=== PATIENT | male | born 1955 | race African-American/Black ===

== ENCOUNTER 2016-02-25 18:28 | Emergency (ER) | payer OTHER ==
[~2016-02-25] VITALS: Ht 167.6 cm; Wt 72.6 kg
[~2016-02-25 18:28] MED LIST: AMIODARONE HCL400 M1 ORAL; AMLODIPINE BESY10 MG ORAL; AMLODIPINE BESYL5 MG ORAL; ASPIRIN81 MG ORAL; ATORVASTATIN CA10 MG ORAL; ATORVASTATIN CA20 MG ORAL; CITALOPRAM HBR20 M1 ORAL; HYDROCODON-ACE1 EA15 ORAL; ISOSORBIDE MON120 M1 PO; ISOSORBIDE MONO30 M1 ORAL; LEVETIRACETAM500 MG ORAL; LISINOPRIL10 MG ORAL; LISINOPRIL5 MG ORAL; MAGNESIUM OXID400 M1 ORAL; METOPROLOL SUC100 MG ORAL; METOPROLOL-HCT1 EAC3 ORAL; MIRTAZAPINE45 M1 ORAL; NITROGLYCERIN0.4 MG SL; PLAVIX75 MG ORAL; TERAZOSIN HCL1 MG ORAL; TRAZODONE HCL150 MG ORAL; VENLAFAXINE HC150 MG ORAL; VISTARIL50 MG ORAL
[2016-02-25 18:41] VITALS: BP 183/106
[2016-02-25 19:11] LABS: BASOPHILS % (AUTO) 1.2 % (0.0-2.0); EOSINOPHILS % (AUTO) 0.6 % (0.0-3.0); MEAN CORPUSCULAR HEMOGLOBIN 30.8 PG (27.0-31.0); MEAN CORPUSCULAR HGB CONC 32.2 G/DL (32.0-36.0); MEAN CORPUSCULAR VOLUME 96 FL (80-99); MEAN PLATELET VOLUME 5.3 FL (6.5-10.1); MONOCYTES % (AUTO) 8.1 % (1.0-10.0); NEUTROPHILS % (AUTO) 61.1 % (45.0-75.0); PLATELET COUNT 225 K/UL (150-450); RED BLOOD COUNT 4.41 M/UL (4.70-6.10); RED CELL DISTRIBUTION WIDTH 14.9 % (11.6-14.8)
[2016-02-25 19:26] LABS: TROPONIN I < 0.30 ng/mL (<=0.30)
[2016-02-25 19:31] LABS: ALANINE AMINOTRANSFERASE 40 U/L (3-41); ALBUMIN/GLOBULIN RATIO 1.5 (1.0-2.7); ANION GAP 15 (5-15); ASPARTATE AMINO TRANSFERASE 33 U/L (5-40); CALCIUM 8.7 mg/dL (8.6-10.2); CARBON DIOXIDE 25 mEQ/L (20-30); CHLORIDE 99 mEQ/L (98-107); CREATININE 1.1 mg/dL (0.7-1.2); GLOMERULAR FILTRATION RATE > 60 mL/min (>60); HEMOLYSIS 7; POTASSIUM 3.4 mEQ/L (3.4-4.9); SODIUM 139 mEQ/L (135-145); TOTAL PROTEIN 6.8 g/dL (6.6-8.7)
[2016-02-25 19:46] VITALS: BP 158/98
[2016-02-25 19:58] LABS: CKMB 1.7 ng/mL (< 6.7)
[2016-02-25] MEDS ORDERED: Ketorolac 30mg Inj IV ONE (20:15)
[2016-02-25 20:41] VITALS: BP 163/105
[2016-02-25 22:15] VITALS: BP 150/94
--- NOTE | 2016-02-25 22:20 | Emergency Room Report ---
History of Present Illness General Chief Complaint: Chest Pain Source: Patient, EMS Present Illness HPI This patient is brought in by EMS. He complains of chest pain. He states that he was at rest and suddenly developed chest pain. He states he then developed tingling and numbness in his hands and in his legs. He denies recent illness. He denies cough or congestion. He denies nausea or vomiting. He denies fever or chills. He denies trauma. He has no other complaints. Allergies: Coded Allergies: No Known Allergies (Unverified , 04/09/15) Patient History Past Medical History: see triage record, HTN, CAD, CVA/TIA Social History: Denies: alcohol use, drug use, smoking Reviewed Nursing Documentation: PMH: Agreed, PSxH: Agreed Nursing Documentation-PMH Past Medical History: No History, Except For Hx Cardiac Problems: Yes - high chol Hx Hypertension: Yes Hx Cancer: No Hx Gastrointestinal Problems: No Hx Neurological Problems: Yes - disk surgery Hx Cerebrovascular Accident: Yes Hx Seizures: Yes Review of Systems All Other Systems: negative except mentioned in HPI Physical Exam Vital Signs Date Time Temp Pulse Resp B/P Pulse Ox O2 Delivery O2 Flow Rate FiO2 02/25/16 18:28 98.1 84 16 155/100 97 Room Air Sp02 EP Interpretation: reviewed, normal General Appearance: no apparent distress, alert, GCS 15, non-toxic Head: normocephalic, atraumatic Eyes: bilateral eye PERRL, bilateral eye normal inspection ENT: hearing grossly normal, normal pharynx, no angioedema, normal voice Neck: full range of motion, supple/symm/no masses Respiratory: chest non-tender, lungs clear, normal breath sounds, speaking full sentences Cardiovascular #1: regular rate, rhythm, no edema Gastrointestinal: normal bowel sounds, non tender, soft, non-distended, no guarding, no rebound Rectal: deferred Musculoskeletal: back normal, gait/station normal, normal range of motion, non- tender Neurologic: alert, oriented x3, responsive, motor strength/tone normal, sensory intact, speech normal Psychiatric: judgement/insight normal, memory normal, mood/affect normal, no suicidal/homicidal ideation Skin: normal color, no rash, warm/dry, well hydrated Medical Decision Making Diagnostic Impression: Primary Impression: Chest pain ER Course Patient presents with chest pain. He is moderate risk for acute coronary syndrome given his history of CVA and coronary artery disease. Initial workup here in the emergency department is negative, specifically no acute findings on EKG and a negative troponin. Also negative chest x-ray. Given the patient's moderate risk and age, I felt this patient should be admitted for observation to rule out acute coronary syndrome. The patient insurance company requested his transfer to her [facility]. He is in a stable condition and transferred. Labs Test 02/25/16 19:00 White Blood Count 5.0 K/UL (4.8-10.8) Red Blood Count 4.41 M/UL (4.70-6.10) Hemoglobin 13.6 G/DL (14.2-18.0) Hematocrit 42.1 % (42.0-52.0) Mean Corpuscular Volume 96 FL (80-99) Mean Corpuscular Hemoglobin 30.8 PG (27.0-31.0) Mean Corpuscular Hemoglobin Concent 32.2 G/DL (32.0-36.0) Red Cell Distribution Width 14.9 % (11.6-14.8) Platelet Count 225 K/UL (150-450) Mean Platelet Volume 5.3 FL (6.5-10.1) Neutrophils (%) (Auto) 61.1 % (45.0-75.0) Lymphocytes (%) (Auto) 29.0 % (20.0-45.0) Monocytes (%) (Auto) 8.1 % (1.0-10.0) Eosinophils (%) (Auto) 0.6 % (0.0-3.0) Basophils (%) (Auto) 1.2 % (0.0-2.0) Sodium Level 139 mEQ/L (135-145) Potassium Level 3.4 mEQ/L (3.4-4.9) Chloride Level 99 mEQ/L (98-107) Carbon Dioxide Level 25 mEQ/L (20-30) Anion Gap 15 (5-15) Blood Urea Nitrogen 9 mg/dL (7-23) Creatinine 1.1 mg/dL (0.7-1.2) Estimat Glomerular Filtration Rate > 60 mL/min (>60) Glucose Level 129 mg/dL (74-106) Calcium Level 8.7 mg/dL (8.6-10.2) Total Bilirubin 0.4 mg/dL (0.0-1.2) Aspartate Amino Transf (AST/SGOT) 33 U/L (5-40) Alanine Aminotransferase (ALT/SGPT) 40 U/L (3-41) Alkaline Phosphatase 76 U/L (40-129) Total Creatine Kinase 95 U/L (38-174) Creatine Kinase MB 1.7 ng/mL (< 6.7) Creatine Kinase MB Relative Index 1.7 Troponin I < 0.30 ng/mL (<=0.30) Total Protein 6.8 g/dL (6.6-8.7) Albumin 4.1 g/dL (3.5-5.2) Globulin 2.7 g/dL Albumin/Globulin Ratio 1.5 (1.0-2.7) EKG Diagnostic Results Rate: normal Rhythm: NSR ST Segments: no acute changes Rhythm Strip Diag. Results EP Interpretation: yes Rate: 80's Rhythm: NSR, no PVC's, no ectopy Chest X-Ray Diagnostic Results EP Interpretation: Yes Findings: no consolidation, no effusion, no pneumothorax, no acute cardiopulmonary disease Number of Views: 1 Last Vital Signs Date Time Temp Pulse Resp B/P Pulse Ox O2 Delivery O2 Flow Rate FiO2 02/25/16 20:41 99.2 71 15 163/105 98 Room Air Disposition: XFER [facility] Condition: Stable Referrals: [facility],REFERRING (PCP) RODOLFO GILMAN D.O. Feb 25, 2016 22:20
[2016-02-25 22:55] VITALS: BP 185/117
--- NOTE | 2016-02-26 09:13 | Diagnostic Imaging Report ---
Indications: Chest pain Technique: Portable AP chest Findings: Comparison: 11/30/2015 Cardiac silhouette remains normal in size. Pulmonary vasculature remains within normal limits. Lungs and pleura remain clear. Mild calcification of the aortic arch, elevation of the apparent hemidiaphragm again noted.. IMPRESSION: No evidence of acute disease, unchanged Stable chronic changes as described
--- NOTE | 2016-02-26 17:42 | Cardiology Report ---
APPROVED REPORT EKG Measurement Heart [id number] ID [id number] Normal sinus rhythm Possible Lateral infarct, age undetermined Inferior infarct, age undetermined Prolonged QT Abnormal ECG
== END 2016-02-25 22:55 | disposition short-term general hospital (02) ==
LOC: EDBD 18:28 → EMR 20:41 → EDBEDREQ 20:55 → EMR 22:55
DX: R07.9 Chest pain, unspecified (principal); I10 Essential (primary) hypertension; E78.00 Pure hypercholesterolemia, unspecified; Z86.73 Personal history of transient ischemic attack (TIA), and cerebral infarction without residual deficits; I25.10 Atherosclerotic heart disease of native coronary artery without angina pectoris
CPT/HCPCS: 36415; 71010; 80053; 82550; 82553; 84484; 85025; 87081; 93005; 96374; 96375; 99284; J0360; J1885

== ENCOUNTER 2016-05-22 19:24 | Inpatient (IN) | payer OTHER ==
[~2016-05-22] VITALS: Ht 170.2 cm; Wt 81.6 kg
[2016-05-22 19:49] LABS: BASOPHILS % (AUTO) 0.7 % (0.0-2.0); EOSINOPHILS % (AUTO) 0.3 % (0.0-3.0); LYMPHOCYTES % (AUTO) 51.1 % (20.0-45.0); MEAN CORPUSCULAR HEMOGLOBIN 31.4 PG (27.0-31.0); MEAN CORPUSCULAR VOLUME 92 FL (80-99); MEAN PLATELET VOLUME 6.6 FL (6.5-10.1); MONOCYTES % (AUTO) 7.8 % (1.0-10.0); PLATELET COUNT 153 K/UL (150-450); RED BLOOD COUNT 4.16 M/UL (4.70-6.10); RED CELL DISTRIBUTION WIDTH 14.1 % (11.6-14.8); WHITE BLOOD COUNT 3.9 K/UL (4.8-10.8)
[2016-05-22] MEDS ORDERED: Famotidine 20 MG/ 2ML VIAL IVP ONE (20:00)
[2016-05-22] MEDS ORDERED: Morphine Sulfate 4mg/ml Inj IVP ONE (20:00)
[2016-05-22 20:05] LABS: ALANINE AMINOTRANSFERASE 42 U/L (3-41); ALBUMIN/GLOBULIN RATIO 1.4 (1.0-2.7); ANION GAP 15 (5-15); ASPARTATE AMINO TRANSFERASE 32 U/L (5-40); CALCIUM 8.8 mg/dL (8.6-10.2); CARBON DIOXIDE 25 mEQ/L (20-30); CHLORIDE 102 mEQ/L (98-107); CREATININE 1.1 mg/dL (0.7-1.2); GLOMERULAR FILTRATION RATE > 60 mL/min (>60); HEMOLYSIS 9; POTASSIUM 3.1 mEQ/L (3.4-4.9); SODIUM 142 mEQ/L (135-145); TOTAL PROTEIN 6.4 g/dL (6.6-8.7)
[2016-05-22 20:37] LABS: CKMB < 1.5 ng/mL (< 6.7)
[2016-05-22 20:38] LABS: TROPONIN I < 0.30 ng/mL (<=0.30)
[2016-05-22 21:40] VITALS: BP 162/96
[2016-05-22 22:20] VITALS: BP 183/117
[2016-05-22 22:40] VITALS: BP 152/99
--- NOTE | 2016-05-22 22:49 | Emergency Room Report ---
History of Present Illness General Chief Complaint: Chest Pain Source: Patient, EMS Present Illness HPI 60-year-old male since ED complaining of chest pain. Pain is substernal, 6/10, pressure-like, nonradiating. Given aspirin nitroglycerin with minimal improvement in pain. Has history of hypertension. Denies smoking or drug use. Patient has history of gastritis. Notes some epigastric pain which started after the chest pain. Denies nausea or vomiting. No other aggravating relieving factors. Denies any other associated symptoms Allergies: Coded Allergies: No Known Allergies (Unverified , 04/09/15) Patient History Past Medical History: HTN, seizures Past Surgical History: none Pertinent Family History: none Social History: Denies: alcohol use, drug use, smoking Immunizations: UTD Reviewed Nursing Documentation: PMH: Agreed, PSxH: Agreed Nursing Documentation-PMH Past Medical History: No History, Except For Hx Cardiac Problems: Yes - HIGH CHOLESTEROL, SC IN 2012 Hx Hypertension: Yes Hx Cancer: No Hx Gastrointestinal Problems: No Hx Neurological Problems: Yes - disk surgery Hx Cerebrovascular Accident: Yes Hx Seizures: Yes Review of Systems All Other Systems: negative except mentioned in HPI Physical Exam Vital Signs Date Time Temp Pulse Resp B/P Pulse Ox O2 Delivery O2 Flow Rate FiO2 05/22/16 19:19 83 19 150/96 100 Room Air Sp02 EP Interpretation: reviewed General Appearance: no apparent distress, alert, GCS 15, non-toxic Head: normocephalic Eyes: bilateral eye PERRL, bilateral eye normal inspection ENT: normal ENT inspection Neck: normal inspection Respiratory: chest non-tender, lungs clear, normal breath sounds, speaking full sentences Cardiovascular #1: regular rate, rhythm, no edema Gastrointestinal: normal bowel sounds, non tender, soft, non-distended, no guarding, no rebound Rectal: deferred Genitourinary: no CVA tenderness Musculoskeletal: normal inspection Neurologic: alert, oriented x3, responsive, motor strength/tone normal, sensory intact, speech normal Psychiatric: normal inspection Skin: normal inspection Lymphatic: normal inspection, no adenopathy Medical Decision Making Diagnostic Impression: Primary Impression: ACS (acute coronary syndrome) ER Course Hospital Course 60-year-old male presents ED complaining of chest pain Differential diagnoses include: SC/unstable angina, contusion, muscle strain, PTX, rib fracture Clinical course Patient placed on stretcher. on dentist. After initial history and physical I ordered labs, EKG, chest x-ray, morphine labs reviewed- no leukocytosis, hb/hct stable, electrolytes ok, trop negative EKG - NSR, twave inversions in lateral leads Chest x-ray- unremarkable Case discussed with and he agreed to accept the patient to his service for further care and support I. I feel this is a highly complex case requiring extensive working including EKG/Rhythm strip, Xray/CT/US, Blood/urine lab work, repeat exams while in ED, and administration of strong opiates/narcotics for pain control, admission to hospital or close patient follow up. Diagnosis - ACS admitted to telemetry in serious condition Labs Test 05/22/16 19:40 White Blood Count 3.9 K/UL (4.8-10.8) Red Blood Count 4.16 M/UL (4.70-6.10) Hemoglobin 13.1 G/DL (14.2-18.0) Hematocrit 38.4 % (42.0-52.0) Mean Corpuscular Volume 92 FL (80-99) Mean Corpuscular Hemoglobin 31.4 PG (27.0-31.0) Mean Corpuscular Hemoglobin Concent 34.0 G/DL (32.0-36.0) Red Cell Distribution Width 14.1 % (11.6-14.8) Platelet Count 153 K/UL (150-450) Mean Platelet Volume 6.6 FL (6.5-10.1) Neutrophils (%) (Auto) 40.0 % (45.0-75.0) Lymphocytes (%) (Auto) 51.1 % (20.0-45.0) Monocytes (%) (Auto) 7.8 % (1.0-10.0) Eosinophils (%) (Auto) 0.3 % (0.0-3.0) Basophils (%) (Auto) 0.7 % (0.0-2.0) Sodium Level 142 mEQ/L (135-145) Potassium Level 3.1 mEQ/L (3.4-4.9) Chloride Level 102 mEQ/L (98-107) Carbon Dioxide Level 25 mEQ/L (20-30) Anion Gap 15 (5-15) Blood Urea Nitrogen 8 mg/dL (7-23) Creatinine 1.1 mg/dL (0.7-1.2) Estimat Glomerular Filtration Rate > 60 mL/min (>60) Glucose Level 113 mg/dL (74-106) Calcium Level 8.8 mg/dL (8.6-10.2) Total Bilirubin 0.5 mg/dL (0.0-1.2) Aspartate Amino Transf (AST/SGOT) 32 U/L (5-40) Alanine Aminotransferase (ALT/SGPT) 42 U/L (3-41) Alkaline Phosphatase 63 U/L (40-129) Total Creatine Kinase 95 U/L (38-174) Creatine Kinase MB < 1.5 ng/mL (< 6.7) Creatine Kinase MB Relative Index Troponin I < 0.30 ng/mL (<=0.30) Pro-B-Type Natriuretic Peptide 187 pg/mL (0-125) Total Protein 6.4 g/dL (6.6-8.7) Albumin 3.8 g/dL (3.5-5.2) Globulin 2.6 g/dL Albumin/Globulin Ratio 1.4 (1.0-2.7) EKG Diagnostic Results Rate: normal Rhythm: NSR ST Segments: other - twave inversions in lateral heads ASA given to the pt in ED: No - given by ems Rhythm Strip Diag. Results EP Interpretation: yes Rhythm: NSR, no PVC's, no ectopy Chest X-Ray Diagnostic Results EP Interpretation: Yes Findings: no consolidation, no effusion, no pneumothorax, no acute cardiopulmonary disease Number of Views: 1 Last Vital Signs Date Time Temp Pulse Resp B/P Pulse Ox O2 Delivery O2 Flow Rate FiO2 05/22/16 22:29 169/102 05/22/16 19:19 83 19 100 Room Air Status: improved Disposition: ADMITTED INPATIENT Condition: Serious Referrals: [facility]REFERRED [facility],REFERRING (PCP) GT ALCALA M.D. May 22, 2016 22:49
[2016-05-22 22:55] VITALS: BP 145/87
[2016-05-22] MEDS ORDERED: Miralax 17gm pkt ORAL PRN (23:15)
[2016-05-22] MEDS ORDERED: Nitroglycerin Subl 0.4mg tab (Bottle Of 25) SL PRN (23:15)
[2016-05-22] MEDS ORDERED: DuoNeb 0.5-3(2.5)mg/3ml neb HHN PRN (23:15)
[2016-05-22] MEDS ORDERED: Diltiazem 25mg/5ml IV PRN (23:15)
[2016-05-22] MEDS ORDERED: Enalaprilat 2.5mg/2ml Inj IV PRN (23:15)
[2016-05-23] VITALS: BP 145/86
[2016-05-23] MEDS: Morphine Sulfate 2mg/ml Inj IVP PRN ×6 (00:28→21:21)
[2016-05-23] MEDS ORDERED: DORZOLAMIDE HCL10 M1 BOTH EYES (00:43)
[2016-05-23] MEDS ORDERED: SPIRIVA18 MCG (00:43)
[2016-05-23 04:00] VITALS: BP 117/65
[2016-05-23 08:11] VITALS: BP 143/80
[2016-05-23] MEDS: Metoprolol XL 100mg tab ORAL SCH (08:31)
[2016-05-23] MEDS: Citalopram 20mg Tab ORAL SCH (08:32)
[2016-05-23] MEDS: Aspirin Baby 81mg ORAL SCH (08:32)
[2016-05-23] MEDS: Lisinopril 10mg tab ORAL SCH (08:32)
[2016-05-23] MEDS: Heparin 5000 units/ml inj SUBQ SCH ×2 (08:35→21:19)
[2016-05-23] MEDS ORDERED: Aspirin Baby 81mg ORAL SCH (09:00)
[2016-05-23 09:51] LABS: MEAN CORPUSCULAR HEMOGLOBIN 29.9 PG (27.0-31.0); MEAN CORPUSCULAR VOLUME 94 FL (80-99); MEAN PLATELET VOLUME 6.4 FL (6.5-10.1); PLATELET COUNT 170 K/UL (150-450); RED BLOOD COUNT 4.33 M/UL (4.70-6.10); RED CELL DISTRIBUTION WIDTH 14.8 % (11.6-14.8); WHITE BLOOD COUNT 2.7 K/UL (4.8-10.8)
[2016-05-23 10:04] LABS: INR 1.1 (0.9-1.1); PROTHROMBIN TIME 10.7 SEC (9.30-11.50)
[2016-05-23 10:11] LABS: TROPONIN I < 0.30 ng/mL (<=0.30)
[2016-05-23 10:13] LABS: CHOLESTEROL 133 mg/dL (< 200); CHOLESTEROL/HDL RATIO 2.5 (3.3-4.4); CRP QUANT < 0.3 mg/dL (< 0.5); HEMOLYSIS 3; LDL CHOLESTEROL (CALC.) 60 mg/dL (60-99)
[2016-05-23 10:20] LABS: THYROID STIMULATING HORMONE 0.214 uIU/mL (0.300-4.500)
[2016-05-23 10:30] LABS: BAND NEUTROPHILS % (MANUAL) 0 % (0-8); BASOPHILS % (MANUAL) 0 % (0-2); EOSINOPHILS % (MANUAL) 0 % (0-3); LYMPHOCYTES % (MANUAL) 54 % (20-45); NEUTROPHILS % (MANUAL) 31 % (45-75); PLATELET ESTIMATE ADEQUATE; PLATELET MORPHOLOGY NORMAL; TOTAL CELLS COUNTED 100
--- NOTE | 2016-05-23 10:37 | Diagnostic Imaging Report ---
Indication: Chest pain Technique: One view of the chest Comparison: 02/25/2016 Findings: Lungs and pleural spaces are clear. Heart size is normal. Upper mediastinum is unremarkable. No significant change Impression: No acute process
[2016-05-23 11:18] VITALS: BP 142/78
--- NOTE | 2016-05-23 13:15 | History and Physical ---
History of Present Illness General Date patient seen: May 23, 2016 Reason for Hospitalization: Chest Pain Present Illness HPI 60-year-old male with hx of HTN, CVA presented to [facility] with CC of chest pain, pressure-like, nonradiating. Given aspirin nitroglycerin with minimal improvement in pain. Patient has history of gastritis and some epigastric pain which started after the chest pain. Allergies: Coded Allergies: No Known Allergies (Unverified , 04/09/15) Medication History Scheduled Amlodipine Besylate* (Amlodipine Besylate*), 5 MG ORAL DAILY, (Reported) Aspirin* (Aspirin*), 81 MG ORAL DAILY, (Reported) Atorvastatin Calcium* (Atorvastatin Calcium*), 80 MG ORAL DAILY, (Reported) Atorvastatin Calcium* (Lipitor*), 10 MG ORAL DAILY, (Reported) Citalopram Hydrobromide* (Citalopram Hbr*), 20 MG ORAL DAILY, (Reported) Clopidogrel Bisulfate* (Plavix*), 75 MG ORAL DAILY Dorzolamide Hcl (Dorzolamide Hcl), 1 DROP BOTH EYES THREE TIMES A DAY, (Reported ) Isosorbide Mononitrate (Isosorbide Mononitrate Er), 60 MG ORAL BEDTIME Levetiracetam* (Levetiracetam*), 500 MG ORAL TWICE A DAY, (Reported) Lisinopril* (Lisinopril*), 10 MG ORAL DAILY, (Reported) Magnesium Oxide (Magnesium Oxide), 400 MG ORAL TWICE A DAY, (Reported) Metoprolol Succinate* (Metoprolol Succinate*), 200 MG ORAL DAILY, (Reported) Metoprolol/Hydrochlorothiazide (Metoprolol-Hctz 50-25 Mg Tab), 1 TAB ORAL BID, ( Reported) Mirtazapine (Mirtazapine), 45 MG ORAL BID, (Reported) Terazosin Hcl* (Hytrin*), 2 MG ORAL BEDTIME, (Reported) Trazodone* (Trazodone*), 100 MG ORAL BEDTIME, (Reported) Scheduled PRN Hydrocodone/Acetaminophen 5-325* (Hydrocodone/Acetaminophen 5-325*), 1 TAB ORAL Q6H PRN for For Pain Miscellaneous Medications Nitroglycerin (Nitroglycerin), 0.4 MG SL, (Reported) Tiotropium [place]* (Spiriva*), (Reported) Patient History Healthcare decision maker Resuscitation status Full Code Advanced Directive on File Past Medical/Surgical History Past Medical/Surgical History: (1) Hypertension (2) CVA (cerebral vascular accident) Review of Systems All Other Systems: negative except mentioned in HPI Physical Exam General Appearance: WD/WN, no apparent distress Lines, tubes and drains: peripheral HEENT: normocephalic, atraumatic Neck: non-tender, normal alignment Respiratory/Chest: chest wall non-tender, lungs clear Cardiovascular/Chest: normal peripheral pulses, normal rate Abdomen: normal bowel sounds, non tender Genitourinary/Rectal: normal genital exam, normal rectal exam Extremities: normal range of motion Skin Exam: normal pigmentation 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 Last 24 Hour Vital Signs Date Time Temp Pulse Resp B/P Pulse Ox O2 Delivery O2 Flow Rate FiO2 05/23/16 12:17 82 16 99 Nasal Cannula 2.0 05/23/16 12:11 40 05/23/16 12:10 79 16 97 Nasal Cannula 05/23/16 11:18 98.1 68 20 142/78 99 Room Air 05/23/16 08:32 143/80 05/23/16 08:31 85 143/80 05/23/16 08:31 85 143/80 05/23/16 08:11 97.9 85 20 143/80 98 Room Air 05/23/16 08:03 71 16 Room Air 05/23/16 08:00 80 05/23/16 04:00 Room Air 05/23/16 04:00 97.7 86 20 117/65 97 Bi-pap 05/23/16 04:00 81 05/23/16 00:00 74 05/23/16 00:00 98.2 74 18 145/86 98 Room Air 05/22/16 22:55 98.7 76 19 145/87 100 Room Air 05/22/16 22:55 98.7 76 19 145/87 100 Room Air 05/22/16 22:40 98.7 76 19 152/99 100 Room Air 05/22/16 22:29 169/102 05/22/16 22:20 98.6 77 19 183/117 100 Room Air 05/22/16 21:40 98.6 72 19 162/96 100 Room Air 05/22/16 19:25 79 19 Room Air 05/22/16 19:19 83 19 150/96 100 Room Air Intake and Output 05/22/16 05/23/16 19:00 07:00 Intake Total 240 ml Output Total 300 ml Balance -60 ml Intake Oral 240 ml Output Urine Total 300 ml Laboratory Tests Test 05/22/16 19:40 05/23/16 09:00 White Blood Count 3.9 K/UL (4.8-10.8) L 2.7 K/UL (4.8-10.8) L Red Blood Count 4.16 M/UL (4.70-6.10) L 4.33 M/UL (4.70-6.10) L Hemoglobin 13.1 G/DL (14.2-18.0) L 12.9 G/DL (14.2-18.0) L Hematocrit 38.4 % (42.0-52.0) L 40.5 % (42.0-52.0) L Mean Corpuscular Volume 92 FL (80-99) 94 FL (80-99) Mean Corpuscular Hemoglobin 31.4 PG (27.0-31.0) H 29.9 PG (27.0-31.0) Mean Corpuscular Hemoglobin Concent 34.0 G/DL (32.0-36.0) 32.0 G/DL (32.0-36.0) Red Cell Distribution Width 14.1 % (11.6-14.8) 14.8 % (11.6-14.8) Platelet Count 153 K/UL (150-450) 170 K/UL (150-450) Mean Platelet Volume 6.6 FL (6.5-10.1) 6.4 FL (6.5-10.1) L Neutrophils (%) (Auto) 40.0 % (45.0-75.0) L % (45.0-75.0) Lymphocytes (%) (Auto) 51.1 % (20.0-45.0) H % (20.0-45.0) Monocytes (%) (Auto) 7.8 % (1.0-10.0) % (1.0-10.0) Eosinophils (%) (Auto) 0.3 % (0.0-3.0) % (0.0-3.0) Basophils (%) (Auto) 0.7 % (0.0-2.0) % (0.0-2.0) Sodium Level 142 mEQ/L (135-145) Potassium Level 3.1 mEQ/L (3.4-4.9) L Chloride Level 102 mEQ/L (98-107) Carbon Dioxide Level 25 mEQ/L (20-30) Anion Gap 15 (5-15) Blood Urea Nitrogen 8 mg/dL (7-23) Creatinine 1.1 mg/dL (0.7-1.2) Estimat Glomerular Filtration Rate > 60 mL/min (>60) Glucose Level 113 mg/dL (74-106) H Calcium Level 8.8 mg/dL (8.6-10.2) Total Bilirubin 0.5 mg/dL (0.0-1.2) Aspartate Amino Transf (AST/SGOT) 32 U/L (5-40) Alanine Aminotransferase (ALT/SGPT) 42 U/L (3-41) H Alkaline Phosphatase 63 U/L (40-129) Total Creatine Kinase 95 U/L (38-174) Creatine Kinase MB < 1.5 ng/mL (< 6.7) Creatine Kinase MB Relative Index Troponin I < 0.30 ng/mL (<=0.30) < 0.30 ng/mL (<=0.30) Pro-B-Type Natriuretic Peptide 187 pg/mL (0-125) H Total Protein 6.4 g/dL (6.6-8.7) L Albumin 3.8 g/dL (3.5-5.2) Globulin 2.6 g/dL Albumin/Globulin Ratio 1.4 (1.0-2.7) Differential Total Cells Counted 100 Neutrophils % (Manual) 31 % (45-75) L Lymphocytes % (Manual) 54 % (20-45) H Monocytes % (Manual) 15 % (1-10) H Eosinophils % (Manual) 0 % (0-3) Basophils % (Manual) 0 % (0-2) Band Neutrophils 0 % (0-8) Platelet Estimate Adequate Platelet Morphology Normal Red Blood Cell Morphology Normal Prothrombin Time 10.7 SEC (9.30-11.50) Prothromb Time International Ratio 1.1 (0.9-1.1) Activated Partial Thromboplast Time 29 SEC (23-33) C-Reactive Protein, Quantitative < 0.3 mg/dL (< 0.5) Triglycerides Level 95 mg/dL (< 150) Cholesterol Level 133 mg/dL (< 200) LDL Cholesterol 60 mg/dL (60-99) HDL Cholesterol 54 mg/dL (> 60) Cholesterol/HDL Ratio 2.5 (3.3-4.4) L Thyroid Stimulating Hormone (TSH) 0.214 uIU/mL (0.300-4.500) Height (Feet): 5 Height (Inches): 7.00 Weight (Pounds): 180 Medications Current Medications Medications (Trade) Dose Ordered Sig/Heber Route PRN Reason Start Time Stop Time Status Last Admin Dose Admin Acetaminophen (Tylenol) 650 mg Q4H PRN ORAL FEVER 05/22/16 23:15 06/21/16 23:14 Albuterol/ Ipratropium (DuoNeb 0.5-3(2.5)mg/3ml) 3 ml Q4H PRN HHN Shortness of Breath 05/22/16 23:15 05/27/16 23:14 05/23/16 12:09 Amlodipine Besylate (Norvasc) 5 mg DAILY ORAL 05/23/16 09:00 06/22/16 08:59 05/23/16 08:31 Aspirin (ASA) 162 mg DAILY ORAL 05/23/16 09:00 06/22/16 08:59 05/23/16 08:32 Atorvastatin Calcium (Lipitor) 80 mg BEDTIME ORAL 05/23/16 21:00 06/22/16 20:59 Citalopram Hydrobromide (celeXA) 20 mg DAILY ORAL 05/23/16 09:00 06/22/16 08:59 05/23/16 08:32 Clopidogrel Bisulfate (Plavix) 75 mg DAILY ORAL 05/23/16 09:00 06/22/16 08:59 05/23/16 08:33 Diltiazem HCl (Cardizem) 10 mg EVERY HOUR PRN IV heart rate more than 120, 05/22/16 23:15 06/21/16 23:14 Enalaprilat (Vasotec) 2.5 mg Q6H PRN IV sbp more than 160 05/22/16 23:15 06/21/16 23:14 Heparin Sodium (Porcine) (Heparin 5000 units/ml) 5,000 units EVERY 12 HOURS SUBQ 05/23/16 09:00 06/22/16 08:59 05/23/16 08:35 Isosorbide Mononitrate (Imdur) 60 mg BEDTIME ORAL 05/23/16 21:00 06/22/16 20:59 Ketorolac Tromethamine (Toradol 30mg) 30 mg Q6H PRN IV moderate pain ( 4-6) 05/22/16 23:15 05/27/16 23:14 Levetiracetam (Keppra) 500 mg TWICE A DAY ORAL 05/23/16 09:00 06/22/16 08:59 05/23/16 08:31 Lisinopril (Zestril) 10 mg DAILY ORAL 05/23/16 09:00 06/22/16 08:59 05/23/16 08:32 Metoprolol Succinate (Toprol XL) 200 mg DAILY ORAL 05/23/16 09:00 06/22/16 08:59 05/23/16 08:31 Morphine Sulfate (Morphine Sulfate) 2 mg Q4H PRN IVP severe Pain (Pain Scale 7-10) 05/22/16 23:15 05/29/16 23:14 05/23/16 12:40 Nitroglycerin (Ntg) 0.4 mg Every 5 Minutes PRN SL Prn Chest Pain 05/22/16 23:15 06/21/16 23:14 Ondansetron HCl (Zofran) 4 mg Q6H PRN IVP Nausea & Vomiting 05/22/16 23:15 06/21/16 23:14 Pantoprazole (Protonix) 40 mg DAILY ORAL 05/23/16 09:00 06/22/16 08:59 05/23/16 08:33 Polyethylene Glycol (Miralax) 17 gm DAILYPRN PRN ORAL Constipation 05/22/16 23:15 06/21/16 23:14 Temazepam (Restoril) 15 mg HSPRN PRN ORAL Insomnia 05/22/16 23:15 05/29/16 23:14 05/23/16 00:28 Terazosin HCl (Hytrin) 2 mg BEDTIME ORAL 05/23/16 21:00 06/22/16 20:59 Trazodone HCl (Desyrel) 100 mg BEDTIME ORAL 05/23/16 21:00 06/22/16 20:59 Assessment/Plan Problem List: (1) ACS (acute coronary syndrome) ICD Codes: I24.9 - Acute ischemic heart disease, unspecified SNOMED: 472525588 (2) GERD (gastroesophageal reflux disease) ICD Codes: K21.9 - Gastro-esophageal reflux disease without esophagitis SNOMED: 938864812 (3) Costochondritis ICD Codes: M94.0 - Chondrocostal junction syndrome [Tietze] SNOMED: 98266065 (4) CVA (cerebral vascular accident) ICD Codes: I63.9 - Cerebral infarction, unspecified SNOMED: 475801754 (5) Hypertension ICD Codes: I10 - Essential (primary) hypertension SNOMED: 25721872 Assessment/Plan serial ekg, troponin, echo cardiology evaluation symptomatic treatment. CHARLIE HINTON May 23, 2016 13:15
[2016-05-23 16:00] VITALS: BP 136/90
[2016-05-23 20:00] VITALS: BP 142/85
[2016-05-23] MEDS: Terazosin 1mg cap ORAL SCH (21:18)
[2016-05-23] MEDS: TraZODone 100mg tab ORAL SCH (21:20)
[2016-05-23] MEDS: Atorvastatin 80mg tab ORAL SCH (21:20)
[2016-05-23] MEDS: Imdur 30mg tab ORAL SCH (21:20)
[2016-05-23] MEDS ORDERED: LATANOPROST2.5 ML (23:35)
[2016-05-23] MEDS ORDERED: BRIMONIDINE (23:35)
[2016-05-24] VITALS: BP 116/67
[2016-05-24] MEDS: Morphine Sulfate 2mg/ml Inj IVP PRN ×3 (01:49→10:23)
[2016-05-24 04:30] VITALS: BP 125/80
[2016-05-24 04:35] LABS: MEAN CORPUSCULAR HEMOGLOBIN 29.8 PG (27.0-31.0); MEAN CORPUSCULAR VOLUME 93 FL (80-99); MEAN PLATELET VOLUME 5.8 FL (6.5-10.1); PLATELET COUNT 155 K/UL (150-450); RED BLOOD COUNT 4.09 M/UL (4.70-6.10); RED CELL DISTRIBUTION WIDTH 14.5 % (11.6-14.8); WHITE BLOOD COUNT 2.7 K/UL (4.8-10.8)
[2016-05-24 05:05] LABS: ALANINE AMINOTRANSFERASE 42 U/L (3-41); ALBUMIN/GLOBULIN RATIO 1.5 (1.0-2.7); ANION GAP 10 (5-15); ASPARTATE AMINO TRANSFERASE 33 U/L (5-40); CALCIUM 8.5 mg/dL (8.6-10.2); CARBON DIOXIDE 28 mEQ/L (20-30); CHLORIDE 104 mEQ/L (98-107); CREATININE 1.1 mg/dL (0.7-1.2); GLOMERULAR FILTRATION RATE > 60 mL/min (>60); HEMOLYSIS 4; MAGNESIUM 1.7 mg/dL (1.7-2.5); PHOSPHORUS 2.9 mg/dL (2.5-4.8); SODIUM 142 mEQ/L (135-145); TOTAL PROTEIN 5.6 g/dL (6.6-8.7)
[2016-05-24 05:06] LABS: TROPONIN I < 0.30 ng/mL (<=0.30)
[2016-05-24 07:46] VITALS: BP 109/67
[2016-05-24] MEDS: Dorzolamide 2% Btl LEFT EYE SCH ×3 (09:04→17:51)
[2016-05-24] MEDS: Citalopram 20mg Tab ORAL SCH (09:05)
[2016-05-24] MEDS: Lisinopril 10mg tab ORAL SCH (09:05)
[2016-05-24] MEDS: Aspirin Baby 81mg ORAL SCH (09:05)
[2016-05-24] MEDS: Metoprolol XL 100mg tab ORAL SCH (09:05)
[2016-05-24] MEDS: Heparin 5000 units/ml inj SUBQ SCH ×2 (09:07→20:56)
[2016-05-24 11:26] VITALS: BP 128/80
--- NOTE | 2016-05-24 12:07 | Pulmonology Progress Note ---
Assessment/Plan Problems: (1) ACS (acute coronary syndrome) (2) GERD (gastroesophageal reflux disease) (3) Costochondritis (4) CVA (cerebral vascular accident) (5) Hypertension Assessment/Plan echo noted, troponin negative c/o abdominal pain will get KUB and ask for GI evaluation Subjective ROS Limited/Unobtainable: No Interval Events: comfortable Allergies: Coded Allergies: No Known Allergies (Unverified , 04/09/15) Objective Last 24 Hour Vital Signs Date Time Temp Pulse Resp B/P Pulse Ox O2 Delivery O2 Flow Rate FiO2 05/24/16 11:26 97.6 67 20 128/80 96 Room Air 05/24/16 09:06 69 109/67 05/24/16 09:05 69 109/67 05/24/16 09:05 109/67 05/24/16 08:00 66 05/24/16 07:46 97.7 69 20 109/67 99 Nasal Cannula 2.0 05/24/16 04:30 97.7 70 20 125/80 97 05/24/16 04:00 69 05/24/16 00:00 98.2 66 20 116/67 99 Room Air 05/24/16 00:00 67 05/23/16 21:51 98.0 05/23/16 21:20 142/85 05/23/16 20:00 64 05/23/16 20:00 98.0 71 18 142/85 97 Room Air 05/23/16 19:40 72 16 Room Air 21 05/23/16 16:00 98.2 69 18 136/90 97 Room Air 05/23/16 16:00 66 05/23/16 12:17 82 16 99 Nasal Cannula 2.0 05/23/16 12:11 40 05/23/16 12:10 79 16 97 Nasal Cannula Intake and Output 05/23/16 05/24/16 19:00 07:00 Intake Total 250 ml 400 ml Balance 250 ml 400 ml Intake Oral 250 ml 400 ml # Voids 2 1 General Appearance: WD/WN HEENT: normocephalic Respiratory/Chest: chest wall non-tender, lungs clear Cardiovascular: normal peripheral pulses, normal rate Abdomen: normal bowel sounds, soft, non tender 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 Laboratory Tests 05/23/16 14:30: Urine Opiates Screen PositiveH, Urine Barbiturates Screen Negative, Phencyclidine (PCP) Screen Negative, Urine Amphetamines Screen PositiveH, Urine Benzodiazepines Screen Negative, Urine Cocaine Screen Negative, Urine Marijuana (THC) Screen Negative 05/24/16 04:10: White Blood Count 2.7L, Red Blood Count 4.09L, Hemoglobin 12.2L, Hematocrit 38.1L, Mean Corpuscular Volume 93, Mean Corpuscular Hemoglobin 29.8, Mean Corpuscular Hemoglobin Concent 32.0, Red Cell Distribution Width 14.5, Platelet Count 155, Mean Platelet Volume 5.8L, Neutrophils (%) (Auto) , Lymphocytes (%) ( Auto) , Monocytes (%) (Auto) , Eosinophils (%) (Auto) , Basophils (%) (Auto) , Sodium Level 142, Potassium Level 4.0, Chloride Level 104, Carbon Dioxide Level 28, Anion Gap 10, Blood Urea Nitrogen 14, Creatinine 1.1, Estimat Glomerular Filtration Rate > 60, Glucose Level 94, Calcium Level 8.5L, Phosphorus Level 2.9 , Magnesium Level 1.7, Total Bilirubin 0.3, Aspartate Amino Transf (AST/SGOT) 33 , Alanine Aminotransferase (ALT/SGPT) 42H, Alkaline Phosphatase 60, Troponin I < 0.30, Total Protein 5.6L, Albumin 3.4L, Globulin 2.2, Albumin/Globulin Ratio 1.5 Current Medications Medications (Trade) Dose Ordered Sig/Heber Route PRN Reason Start Time Stop Time Status Last Admin Dose Admin Acetaminophen (Tylenol) 650 mg Q4H PRN ORAL FEVER 05/22/16 23:15 06/21/16 23:14 Albuterol/ Ipratropium (DuoNeb 0.5-3(2.5)mg/3ml) 3 ml Q4H PRN HHN Shortness of Breath 05/22/16 23:15 05/27/16 23:14 05/23/16 12:09 Amlodipine Besylate (Norvasc) 5 mg DAILY ORAL 05/23/16 09:00 06/22/16 08:59 05/24/16 09:06 Aspirin (ASA) 162 mg DAILY ORAL 05/23/16 09:00 06/22/16 08:59 05/24/16 09:05 Atorvastatin Calcium (Lipitor) 80 mg BEDTIME ORAL 05/23/16 21:00 06/22/16 20:59 05/23/16 21:20 Citalopram Hydrobromide (celeXA) 20 mg DAILY ORAL 05/23/16 09:00 06/22/16 08:59 05/24/16 09:05 Clopidogrel Bisulfate (Plavix) 75 mg DAILY ORAL 05/23/16 09:00 06/22/16 08:59 05/24/16 09:05 Diltiazem HCl (Cardizem) 10 mg EVERY HOUR PRN IV heart rate more than 120, 05/22/16 23:15 06/21/16 23:14 Dorzolamide HCl (Trusopt) 1 drop THREE TIMES A DAY LEFT EYE 05/24/16 09:00 06/23/16 08:59 05/24/16 09:04 Enalaprilat (Vasotec) 2.5 mg Q6H PRN IV sbp more than 160 05/22/16 23:15 06/21/16 23:14 Heparin Sodium (Porcine) (Heparin 5000 units/ml) 5,000 units EVERY 12 HOURS SUBQ 05/23/16 09:00 06/22/16 08:59 05/24/16 09:07 Isosorbide Mononitrate (Imdur) 60 mg BEDTIME ORAL 05/23/16 21:00 06/22/16 20:59 05/23/16 21:20 Ketorolac Tromethamine (Toradol 30mg) 30 mg Q6H PRN IV moderate pain ( 4-6) 05/22/16 23:15 05/27/16 23:14 Latanoprost (Xalatan) 1 drop BEDTIME LEFT EYE 05/24/16 21:00 06/23/16 20:59 Levetiracetam (Keppra) 500 mg TWICE A DAY ORAL 05/23/16 09:00 06/22/16 08:59 05/24/16 09:06 Lisinopril (Zestril) 10 mg DAILY ORAL 05/23/16 09:00 06/22/16 08:59 05/24/16 09:05 Metoprolol Succinate (Toprol XL) 200 mg DAILY ORAL 05/23/16 09:00 06/22/16 08:59 05/24/16 09:05 Morphine Sulfate (Morphine Sulfate) 2 mg Q4H PRN IVP severe Pain (Pain Scale 7-10) 05/22/16 23:15 05/29/16 23:14 05/24/16 10:23 Nitroglycerin (Ntg) 0.4 mg Every 5 Minutes PRN SL Prn Chest Pain 05/22/16 23:15 06/21/16 23:14 Non-Formulary Medication (Non-Formulary Med) 1 ea DAILY ORAL 05/24/16 09:00 06/23/16 08:59 UNV Ondansetron HCl (Zofran) 4 mg Q6H PRN IVP Nausea & Vomiting 05/22/16 23:15 06/21/16 23:14 05/23/16 21:22 Pantoprazole (Protonix) 40 mg DAILY ORAL 05/23/16 09:00 06/22/16 08:59 05/24/16 09:05 Polyethylene Glycol (Miralax) 17 gm DAILYPRN PRN ORAL Constipation 05/22/16 23:15 06/21/16 23:14 Temazepam (Restoril) 15 mg HSPRN PRN ORAL Insomnia 05/22/16 23:15 05/29/16 23:14 05/23/16 21:23 Terazosin HCl (Hytrin) 2 mg BEDTIME ORAL 05/23/16 21:00 06/22/16 20:59 05/23/16 21:18 Trazodone HCl (Desyrel) 100 mg BEDTIME ORAL 05/23/16 21:00 06/22/16 20:59 05/23/16 21:20 CHARLIE HINTON May 24, 2016 12:07
[2016-05-24 13:06] LABS: PROTHROMBIN TIME 10.6 SEC (9.30-11.50)
[2016-05-24 13:12] LABS: ANISOCYTOSIS 1+; BAND NEUTROPHILS % (MANUAL) 0 % (0-8); BASOPHILS % (MANUAL) 0 % (0-2); EOSINOPHILS % (MANUAL) 0 % (0-3); HYPOCHROMASIA 1+; LYMPHOCYTES % (MANUAL) 49 % (20-45); NEUTROPHILS % (MANUAL) 42 % (45-75); PLATELET ESTIMATE ADEQUATE; PLATELET MORPHOLOGY NORMAL; TOTAL CELLS COUNTED 100
[2016-05-24 13:27] LABS: PATH BLOOD SMEAR/OMC SENT TO PATHOLOGIST; RETICULOCYTE COUNT 0.6 % (0.0-2.0)
[2016-05-24 13:57] LABS: ERYTHROCYTE SEDIMENTATION RATE 4 MM/HR (0-20)
[2016-05-24] MEDS: Ketorolac 30mg Inj IV PRN ×2 (14:41→20:45)
[2016-05-24 16:00] VITALS: BP 149/97
[2016-05-24 20:00] VITALS: BP 144/94
--- NOTE | 2016-05-24 20:38 | Cardiology Progress Note ---
Subjective Subjective [id number] Objective Last 24 Hour Vital Signs Date Time Temp Pulse Resp B/P Pulse Ox O2 Delivery O2 Flow Rate FiO2 05/24/16 19:44 70 20 Room Air 21 05/24/16 16:00 63 05/24/16 12:00 65 05/24/16 11:26 97.6 67 20 128/80 96 Room Air 05/24/16 09:06 69 109/67 05/24/16 09:05 69 109/67 05/24/16 09:05 109/67 05/24/16 08:00 66 05/24/16 07:46 97.7 69 20 109/67 99 Nasal Cannula 2.0 05/24/16 04:30 97.7 70 20 125/80 97 05/24/16 04:00 69 05/24/16 00:00 98.2 66 20 116/67 99 Room Air 05/24/16 00:00 67 05/23/16 21:51 98.0 05/23/16 21:20 142/85 Intake and Output 05/23/16 05/24/16 19:00 07:00 Intake Total 250 ml 400 ml Balance 250 ml 400 ml Intake Oral 250 ml 400 ml # Voids 2 1 Laboratory Tests Test 05/24/16 04:10 05/24/16 12:45 White Blood Count 2.7 K/UL (4.8-10.8) L Red Blood Count 4.09 M/UL (4.70-6.10) L Hemoglobin 12.2 G/DL (14.2-18.0) L Hematocrit 38.1 % (42.0-52.0) L Mean Corpuscular Volume 93 FL (80-99) Mean Corpuscular Hemoglobin 29.8 PG (27.0-31.0) Mean Corpuscular Hemoglobin Concent 32.0 G/DL (32.0-36.0) Red Cell Distribution Width 14.5 % (11.6-14.8) Platelet Count 155 K/UL (150-450) Mean Platelet Volume 5.8 FL (6.5-10.1) L Neutrophils (%) (Auto) % (45.0-75.0) Lymphocytes (%) (Auto) % (20.0-45.0) Monocytes (%) (Auto) % (1.0-10.0) Eosinophils (%) (Auto) % (0.0-3.0) Basophils (%) (Auto) % (0.0-2.0) Differential Total Cells Counted 100 Neutrophils % (Manual) 42 % (45-75) L Lymphocytes % (Manual) 49 % (20-45) H Monocytes % (Manual) 9 % (1-10) Eosinophils % (Manual) 0 % (0-3) Basophils % (Manual) 0 % (0-2) Band Neutrophils 0 % (0-8) Platelet Estimate Adequate Platelet Morphology Normal Hypochromasia 1+ Anisocytosis 1+ Sodium Level 142 mEQ/L (135-145) Potassium Level 4.0 mEQ/L (3.4-4.9) Chloride Level 104 mEQ/L (98-107) Carbon Dioxide Level 28 mEQ/L (20-30) Anion Gap 10 (5-15) Blood Urea Nitrogen 14 mg/dL (7-23) Creatinine 1.1 mg/dL (0.7-1.2) Estimat Glomerular Filtration Rate > 60 mL/min (>60) Glucose Level 94 mg/dL (74-106) Calcium Level 8.5 mg/dL (8.6-10.2) L Phosphorus Level 2.9 mg/dL (2.5-4.8) Magnesium Level 1.7 mg/dL (1.7-2.5) Total Bilirubin 0.3 mg/dL (0.0-1.2) Aspartate Amino Transf (AST/SGOT) 33 U/L (5-40) Alanine Aminotransferase (ALT/SGPT) 42 U/L (3-41) H Alkaline Phosphatase 60 U/L (40-129) Troponin I < 0.30 ng/mL (<=0.30) Total Protein 5.6 g/dL (6.6-8.7) L Albumin 3.4 g/dL (3.5-5.2) L Globulin 2.2 g/dL Albumin/Globulin Ratio 1.5 (1.0-2.7) Erythrocyte Sedimentation Rate 4 MM/HR (0-20) Reticulocyte Count 0.6 % (0.0-2.0) Prothrombin Time 10.6 SEC (9.30-11.50) Prothromb Time International Ratio 1.0 (0.9-1.1) Activated Partial Thromboplast Time 42 SEC (23-33) H Iron Level 66 ug/dL (59-158) Total Iron Binding Capacity 365 ug/dL (250-400) Percent Iron Saturation 18 % (15-50) Unsaturated Iron Binding 299 ug/dL (112-346) Lactate Dehydrogenase 160 U/L (135-225) Carcinoembryonic Antigen 3.5 ng/mL H Vitamin B12 Level 317 pg/mL (211-946) Folate Pending ZOHRA SALAZAR May 24, 2016 20:38
[2016-05-24] MEDS: Atorvastatin 80mg tab ORAL SCH (20:46)
[2016-05-24] MEDS: Imdur 30mg tab ORAL SCH (20:46)
[2016-05-24] MEDS: TraZODone 100mg tab ORAL SCH (20:46)
[2016-05-24] MEDS: Brimonidine 0.2% Opth Sol BOTH EYES SCH (20:48)
[2016-05-24] MEDS: Terazosin 1mg cap ORAL SCH (21:10)
[2016-05-25 00:17] VITALS: BP 135/87
--- NOTE | 2016-05-25 01:58 | Consultation ---
DATE OF CONSULTATION: 05/24/2016 CARDIOLOGY CONSULTATION This consultation is done as a coverage for Dr. Laz Ch. IDENTIFYING DATA: This is a 60-year-old black male. REASON FOR ADMISSION: Chest pain. HISTORY OF PRESENT ILLNESS: The patient is a pleasant 60-year-old gentleman with history of coronary stents in 2012 at [facility]. I asked if he was told he had NH at that time and he said no, he was not told. He is still having chest pain about 4 months ago, which was radiating to the left arm, relieved by sublingual nitroglycerin, but day before yesterday, the pain became much worse. It happened when he got up and he went to shower and he started having tingling and numbness of the left shoulder and left arm and substernal pressure. He took nitroglycerin, the pain relieved, and then in an hour came back. The patient right now does not have chest pain. He did not have chest pain in the hospital. PAST MEDICAL HISTORY: Significant for hypertension and hyperlipidemia. He does not have diabetes. HABITS: He smokes about 2 to 3 cigarettes a day for the last 40 years. He denies alcohol abuse. No cocaine or IV drugs. PAST SURGICAL HISTORY: Remarkable for angioplasty, left eye surgery, and cholecystectomy. ALLERGIES: None. MEDICATIONS: His medications were all reviewed and reconciled. REVIEW OF SYSTEMS: His review of systems was done in details, but he did not have any additional information to his history. PHYSICAL EXAMINATION: GENERAL: This is a pleasant gentleman. VITAL SIGNS: Blood pressure 110/70, heart rate is 70, oxygen saturation is normal, and temperature is normal. HEENT: PERRLA. EOMI. NECK: Supple. Jugular pressure is not elevated. Carotid upstroke is preserved. LUNGS: He has few scattered wheezing bilaterally, but in general unremarkable. HEART: Regular. Positive S4. Diminished S1. ABDOMEN: Soft. Slightly distended. Slightly tender in suprapubic area. EXTREMITIES: Lower extremities, no edema. Distal pulses palpable. Slightly decreased sensitivity on the right leg. NEUROLOGIC: LABORATORY AND DIAGNOSTIC DATA: EKG shows inferior infarct, probably old. Chest x-ray unremarkable. The rest of the labs were all reviewed and they are unremarkable besides mild anemia, decreased white count, and slightly decreased albumin. IMPRESSION AND RECOMMENDATIONS: Chest pain, sounds like angina to me and EKG is abnormal with inferior infarct. This patient needs a cardiac workup. I am going to go ahead and order nuclear scan on him and he might need coronary angiogram. Thank you very much for your consultation. Nilda Palma M.D. DR: DIAMOND JOB#: [id number] CC:
[2016-05-25 04:03] VITALS: BP 129/74
[2016-05-25 04:34] LABS: MEAN CORPUSCULAR HGB CONC 32.4 G/DL (32.0-36.0); MEAN CORPUSCULAR VOLUME 93 FL (80-99); PLATELET COUNT 156 K/UL (150-450); RED BLOOD COUNT 3.94 M/UL (4.70-6.10); RED CELL DISTRIBUTION WIDTH 14.4 % (11.6-14.8); WHITE BLOOD COUNT 2.5 K/UL (4.8-10.8)
[2016-05-25] MEDS: Ketorolac 30mg Inj IV PRN ×3 (05:25→18:32)
[2016-05-25 07:56] VITALS: BP 150/87
--- NOTE | 2016-05-25 09:13 | General Progress Note ---
Assessment/Plan Assessment/Plan Assessment - Bloating / gas - loose stools - non specific abd pain - bordeline CEA - borderline LFT changes - CP / ACS Recommendations - Check C diff - check hepatitis serologies - check abd u/s - cardilogy w/u - outpatient EGD/Colon - outpt SIBO analysis Subjective Allergies: Coded Allergies: No Known Allergies (Unverified , 04/09/15) Objective Last 24 Hour Vital Signs Date Time Temp Pulse Resp B/P Pulse Ox O2 Delivery O2 Flow Rate FiO2 05/25/16 07:56 97.7 68 20 150/87 97 Room Air 05/25/16 04:03 98.8 62 20 129/74 99 Room Air 05/25/16 04:00 60 05/25/16 00:17 98.7 77 21 135/87 98 Room Air 05/25/16 00:00 69 05/24/16 20:46 128/80 05/24/16 20:00 98.2 73 20 144/94 97 Room Air 05/24/16 20:00 62 05/24/16 19:44 70 20 Room Air 21 05/24/16 16:00 97.7 63 20 149/97 96 Room Air 05/24/16 16:00 63 05/24/16 16:00 63 05/24/16 12:00 65 05/24/16 11:26 97.6 67 20 128/80 96 Room Air Intake and Output 05/24/16 05/25/16 19:00 07:00 Intake Total 490 ml 360 ml Balance 490 ml 360 ml Intake Oral 490 ml 360 ml # Voids 3 4 Laboratory Tests 05/24/16 12:45: Erythrocyte Sedimentation Rate 4, Reticulocyte Count 0.6, Prothrombin Time 10.6 , Prothromb Time International Ratio 1.0, Activated Partial Thromboplast Time 42H, Iron Level 66, Total Iron Binding Capacity 365, Percent Iron Saturation 18 , Unsaturated Iron Binding 299, Lactate Dehydrogenase 160, Carcinoembryonic Antigen 3.5H, Vitamin B12 Level 317, Folate [Pending] 05/25/16 03:55: White Blood Count 2.5L, Red Blood Count 3.94L, Hemoglobin 11.8L, Hematocrit 36.5L, Mean Corpuscular Volume 93, Mean Corpuscular Hemoglobin 30.0, Mean Corpuscular Hemoglobin Concent 32.4, Red Cell Distribution Width 14.4, Platelet Count 156, Mean Platelet Volume 7.0, Neutrophils (%) (Auto) , Lymphocytes (%) ( Auto) , Monocytes (%) (Auto) , Eosinophils (%) (Auto) , Basophils (%) (Auto) , Neutrophils % (Manual) [Pending], Lymphocytes % (Manual) [Pending], Platelet Estimate [Pending], Platelet Morphology [Pending] Height (Feet): 5 Height (Inches): 7.00 Weight (Pounds): 180 ESTHER MA May 25, 2016 09:13
[2016-05-25] MEDS: Aspirin Baby 81mg ORAL SCH (09:44)
[2016-05-25] MEDS: Lisinopril 10mg tab ORAL SCH (09:44)
[2016-05-25] MEDS: Metoprolol XL 100mg tab ORAL SCH (09:45)
[2016-05-25] MEDS: Dorzolamide 2% Btl LEFT EYE SCH ×2 (09:45→12:12)
[2016-05-25] MEDS: Brimonidine 0.2% Opth Sol BOTH EYES SCH ×3 (09:46→18:31)
[2016-05-25] MEDS: Heparin 5000 units/ml inj SUBQ SCH ×2 (09:52→20:54)
[2016-05-25] MEDS: Citalopram 20mg Tab ORAL SCH (10:04)
[2016-05-25 10:22] LABS: ANISOCYTOSIS 1+; BAND NEUTROPHILS % (MANUAL) 0 % (0-8); BASOPHILS % (MANUAL) 0 % (0-2); EOSINOPHILS % (MANUAL) 1 % (0-3); LYMPHOCYTES % (MANUAL) 61 % (20-45); NEUTROPHILS % (MANUAL) 26 % (45-75); PLATELET ESTIMATE ADEQUATE; PLATELET MORPHOLOGY NORMAL; TOTAL CELLS COUNTED 100
--- NOTE | 2016-05-25 10:47 | Diagnostic Imaging Report ---
Indication: Abdominal pain Technique: Supine views of the abdomen Comparison: None Findings: Bowel gas pattern is nonobstructive and nonspecific. Clips are seen in the right upper quadrant. Atherosclerotic changes are present. Impression: Nonobstructive and nonspecific bowel gas pattern. Cholecystectomy.
[2016-05-25 11:40] VITALS: BP 158/82
[2016-05-25] MEDS ORDERED: LATANOPROST2.5 ML BOTH EYES (13:11)
[2016-05-25 15:45] VITALS: BP 133/86
--- NOTE | 2016-05-25 15:48 | Cardiology Progress Note ---
Assessment/Plan Assessment/Plan stress nuc tomorrow Subjective Subjective doing well no chest pain Objective Last 24 Hour Vital Signs Date Time Temp Pulse Resp B/P Pulse Ox O2 Delivery O2 Flow Rate FiO2 05/25/16 15:45 97.7 72 20 133/86 98 Room Air 05/25/16 11:56 64 18 Room Air 21 05/25/16 11:40 97.9 65 20 158/82 98 Room Air 05/25/16 09:45 68 150/87 05/25/16 09:45 68 150/87 05/25/16 09:44 150/87 05/25/16 07:56 97.7 68 20 150/87 97 Room Air 05/25/16 04:03 98.8 62 20 129/74 99 Room Air 05/25/16 04:00 60 05/25/16 00:17 98.7 77 21 135/87 98 Room Air 05/25/16 00:00 69 05/24/16 20:46 128/80 05/24/16 20:00 98.2 73 20 144/94 97 Room Air 05/24/16 20:00 62 05/24/16 19:44 70 20 Room Air 21 05/24/16 16:00 97.7 63 20 149/97 96 Room Air 05/24/16 16:00 63 05/24/16 16:00 63 General Appearance: mild distress EENT: PERRL/EOMI Neck: non-tender Cardiovascular: normal rate Respiratory/Chest: lungs clear Abdomen: non tender Intake and Output 05/24/16 05/25/16 19:00 07:00 Intake Total 490 ml 360 ml Balance 490 ml 360 ml Intake Oral 490 ml 360 ml # Voids 3 4 Laboratory Tests Test 05/25/16 03:55 White Blood Count 2.5 K/UL (4.8-10.8) L Red Blood Count 3.94 M/UL (4.70-6.10) L Hemoglobin 11.8 G/DL (14.2-18.0) L Hematocrit 36.5 % (42.0-52.0) L Mean Corpuscular Volume 93 FL (80-99) Mean Corpuscular Hemoglobin 30.0 PG (27.0-31.0) Mean Corpuscular Hemoglobin Concent 32.4 G/DL (32.0-36.0) Red Cell Distribution Width 14.4 % (11.6-14.8) Platelet Count 156 K/UL (150-450) Mean Platelet Volume 7.0 FL (6.5-10.1) Neutrophils (%) (Auto) % (45.0-75.0) Lymphocytes (%) (Auto) % (20.0-45.0) Monocytes (%) (Auto) % (1.0-10.0) Eosinophils (%) (Auto) % (0.0-3.0) Basophils (%) (Auto) % (0.0-2.0) Differential Total Cells Counted 100 Neutrophils % (Manual) 26 % (45-75) L Lymphocytes % (Manual) 61 % (20-45) H Monocytes % (Manual) 12 % (1-10) H Eosinophils % (Manual) 1 % (0-3) Basophils % (Manual) 0 % (0-2) Band Neutrophils 0 % (0-8) Platelet Estimate Adequate Platelet Morphology Normal Anisocytosis 1+ ZOHRA SALAZAR May 25, 2016 15:48
[2016-05-25] MEDS: Dorzolamide 2% Btl BOTH EYES SCH (18:31)
--- NOTE | 2016-05-25 19:07 | Pulmonology Progress Note ---
Assessment/Plan Problems: (1) ACS (acute coronary syndrome) (2) GERD (gastroesophageal reflux disease) (3) Costochondritis (4) CVA (cerebral vascular accident) (5) Hypertension Assessment/Plan echo noted, troponin negative c/o abdominal pain will get KUB and ask for GI evaluation cardiology f/u pending stres study Subjective ROS Limited/Unobtainable: No Allergies: Coded Allergies: No Known Allergies (Unverified , 04/09/15) Objective Last 24 Hour Vital Signs Date Time Temp Pulse Resp B/P Pulse Ox O2 Delivery O2 Flow Rate FiO2 05/25/16 16:00 72 05/25/16 15:45 97.7 72 20 133/86 98 Room Air 05/25/16 12:00 72 05/25/16 11:56 64 18 Room Air 21 05/25/16 11:40 97.9 65 20 158/82 98 Room Air 05/25/16 09:45 68 150/87 05/25/16 09:45 68 150/87 05/25/16 09:44 150/87 05/25/16 08:00 74 05/25/16 07:56 97.7 68 20 150/87 97 Room Air 05/25/16 04:03 98.8 62 20 129/74 99 Room Air 05/25/16 04:00 60 05/25/16 00:17 98.7 77 21 135/87 98 Room Air 05/25/16 00:00 69 05/24/16 20:46 128/80 05/24/16 20:00 98.2 73 20 144/94 97 Room Air 05/24/16 20:00 62 05/24/16 19:44 70 20 Room Air 21 Intake and Output 05/24/16 05/25/16 19:00 07:00 Intake Total 490 ml 360 ml Balance 490 ml 360 ml Intake Oral 490 ml 360 ml # Voids 3 4 Objective General Appearance: WD/WN HEENT: normocephalic Respiratory/Chest: chest wall non-tender, lungs clear Cardiovascular: normal peripheral pulses, normal rate Abdomen: normal bowel sounds, soft, non tender 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 Laboratory Tests 05/25/16 03:55: White Blood Count 2.5L, Red Blood Count 3.94L, Hemoglobin 11.8L, Hematocrit 36.5L, Mean Corpuscular Volume 93, Mean Corpuscular Hemoglobin 30.0, Mean Corpuscular Hemoglobin Concent 32.4, Red Cell Distribution Width 14.4, Platelet Count 156, Mean Platelet Volume 7.0, Neutrophils (%) (Auto) , Lymphocytes (%) ( Auto) , Monocytes (%) (Auto) , Eosinophils (%) (Auto) , Basophils (%) (Auto) , Differential Total Cells Counted 100, Neutrophils % (Manual) 26L, Lymphocytes % (Manual) 61H, Monocytes % (Manual) 12H, Eosinophils % (Manual) 1, Basophils % ( Manual) 0, Band Neutrophils 0, Platelet Estimate Adequate, Platelet Morphology Normal, Anisocytosis 1+ Current Medications Medications (Trade) Dose Ordered Sig/Heber Route PRN Reason Start Time Stop Time Status Last Admin Dose Admin Acetaminophen (Tylenol) 650 mg Q4H PRN ORAL FEVER 05/22/16 23:15 06/21/16 23:14 Albuterol/ Ipratropium (DuoNeb 0.5-3(2.5)mg/3ml) 3 ml Q4H PRN HHN Shortness of Breath 05/22/16 23:15 05/27/16 23:14 05/23/16 12:09 Amlodipine Besylate (Norvasc) 5 mg DAILY ORAL 05/23/16 09:00 06/22/16 08:59 05/25/16 09:45 Aspirin (ASA) 162 mg DAILY ORAL 05/23/16 09:00 06/22/16 08:59 05/25/16 09:44 Atorvastatin Calcium (Lipitor) 80 mg BEDTIME ORAL 05/23/16 21:00 06/22/16 20:59 05/24/16 20:46 Brimonidine Tartrate (Alphagan) 1 drop TID BOTH EYES 05/24/16 21:00 06/23/16 20:59 05/25/16 18:31 Citalopram Hydrobromide (celeXA) 20 mg DAILY ORAL 05/23/16 09:00 06/22/16 08:59 05/25/16 10:04 Clopidogrel Bisulfate (Plavix) 75 mg DAILY ORAL 05/23/16 09:00 06/22/16 08:59 05/25/16 09:45 Dorzolamide HCl (Trusopt) 1 drop THREE TIMES A DAY BOTH EYES 05/25/16 18:00 06/24/16 17:59 05/25/16 18:31 Enalaprilat (Vasotec) 2.5 mg Q6H PRN IV sbp more than 160 05/22/16 23:15 06/21/16 23:14 Heparin Sodium (Porcine) (Heparin 5000 units/ml) 5,000 units EVERY 12 HOURS SUBQ 05/23/16 09:00 06/22/16 08:59 05/25/16 09:52 Isosorbide Mononitrate (Imdur) 60 mg BEDTIME ORAL 05/23/16 21:00 06/22/16 20:59 05/24/16 20:46 Ketorolac Tromethamine (Toradol 30mg) 30 mg Q6H PRN IV moderate pain ( 4-6) 05/22/16 23:15 05/27/16 23:14 05/25/16 18:32 Latanoprost (Xalatan) 1 drop BEDTIME BOTH EYES 05/25/16 21:00 06/24/16 20:59 Levetiracetam (Keppra) 500 mg TWICE A DAY ORAL 05/23/16 09:00 06/22/16 08:59 05/25/16 18:30 Lisinopril (Zestril) 10 mg DAILY ORAL 05/23/16 09:00 06/22/16 08:59 05/25/16 09:44 Metoprolol Succinate (Toprol XL) 200 mg DAILY ORAL 05/23/16 09:00 06/22/16 08:59 05/25/16 09:45 Nitroglycerin (Ntg) 0.4 mg Every 5 Minutes PRN SL Prn Chest Pain 05/22/16 23:15 06/21/16 23:14 Ondansetron HCl (Zofran) 4 mg Q6H PRN IVP Nausea & Vomiting 05/22/16 23:15 06/21/16 23:14 05/23/16 21:22 Pantoprazole (Protonix) 40 mg DAILY ORAL 05/23/16 09:00 06/22/16 08:59 05/25/16 09:44 Polyethylene Glycol (Miralax) 17 gm DAILYPRN PRN ORAL Constipation 05/22/16 23:15 06/21/16 23:14 Temazepam (Restoril) 15 mg HSPRN PRN ORAL Insomnia 05/22/16 23:15 05/29/16 23:14 05/24/16 22:26 Terazosin HCl (Hytrin) 2 mg BEDTIME ORAL 05/23/16 21:00 06/22/16 20:59 05/24/16 21:10 Trazodone HCl (Desyrel) 100 mg BEDTIME ORAL 05/23/16 21:00 06/22/16 20:59 05/24/16 20:46 CHARLIE HINTON May 25, 2016 19:06
[2016-05-25 20:00] VITALS: BP 150/87
[2016-05-25] MEDS: Imdur 30mg tab ORAL SCH (20:52)
[2016-05-25] MEDS: Atorvastatin 80mg tab ORAL SCH (20:54)
[2016-05-25] MEDS: TraZODone 100mg tab ORAL SCH (20:55)
[2016-05-25] MEDS: Terazosin 1mg cap ORAL SCH (20:55)
[2016-05-25] MEDS ORDERED: Dorzolamide 2% Btl BOTH EYES SCH (21:00)
--- NOTE | 2016-05-25 22:38 | Consultation ---
DATE OF CONSULTATION: 05/25/2016 CONSULTING PHYSICIAN: Clemente Valdivia M.D. REFERRING PHYSICIAN: Axel Corbett M.D. CHIEF COMPLAINT: I was asked to see this patient by Dr. Axel Corbett for evaluation of abdominal symptoms. HISTORY OF PRESENT ILLNESS: The patient is a 60-year-old, man, who is admitted to the hospital due to chest pain, abdominal pain, and bloating. The patient has been seen by Cardiology and he has got risk factors for cardiac disease including past cardiac disease as well as suspicious chest pain and therefore he is being considered for a formal cardiac evaluation. The patient also complains of two-week history of abdominal discomfort with distention and nausea, but no vomiting. He has had some loose stools about three times a day. His stools were brown. He has never had endoscopy or colonoscopy. He denies any melena or hematochezia. The patient has not taken any recent antibiotics. His admission evaluation shows positive amphetamine and narcotics, but he denies any use of these materials. PAST MEDICAL HISTORY: Remarkable for history of hypertension, history of coronary artery disease, and history of hypercholesterolemia. FAMILY HISTORY: Noncontributory. SOCIAL HISTORY: The patient is . He has some stepchildren. REVIEW OF SYSTEMS: Otherwise negative. PHYSICAL EXAMINATION: GENERAL: This is a pleasant man, seen in his room. HEENT: Normocephalic and atraumatic. Sclerae nonicteric. Oropharynx clear. NECK: Supple. CHEST: Clear to auscultation. ABDOMEN: Obese abdomen with good bowel sounds. No organomegaly or tenderness. EXTREMITIES: No edema. LABORATORY DATA: Noted. ASSESSMENT: This patient presents with chest pain, which is suspicious for coronary artery disease related pain. Also, he has risk factors for coronary artery disease and therefore he is being evaluated for formal cardiac evaluation by the Cardiology service. He does have some abdominal pain and persistent abdominal discomfort and bloating, which may be functional in nature. He should undergo an endoscopy and colonoscopy as an outpatient for screening and diagnostic purposes once his cardiac evaluation is complete. I would also check a Clostridium difficile since he has had some diarrhea recently. The patient understands that it is his responsibility to follow up with his outpatient primary care physician after discharge to ask about endoscopy and colonoscopy, which is not urgent to be done at this time. RECOMMENDATIONS: Per above discussion and per orders in the chart. Thank you for asking me to participate in the care of this patient. Clemente Valdivia M.D. DR: LAURIE JOB#: [id number] CC:
[2016-05-26] VITALS: BP 122/67
[2016-05-26] MEDS: Ketorolac 30mg Inj IV PRN ×4 (00:40→22:27)
[2016-05-26 04:00] VITALS: BP 142/75
[2016-05-26 08:00] VITALS: BP 138/92
[2016-05-26] MEDS: Aspirin Baby 81mg ORAL SCH (08:54)
[2016-05-26] MEDS: Citalopram 20mg Tab ORAL SCH (08:54)
[2016-05-26] MEDS: Dorzolamide 2% Btl BOTH EYES SCH ×3 (08:55→17:13)
[2016-05-26] MEDS: Brimonidine 0.2% Opth Sol BOTH EYES SCH ×3 (08:55→17:13)
[2016-05-26] MEDS: Lisinopril 10mg tab ORAL SCH (08:55)
[2016-05-26] MEDS: Metoprolol XL 100mg tab ORAL SCH (08:56)
[2016-05-26] MEDS: Heparin 5000 units/ml inj SUBQ SCH ×2 (09:04→20:47)
[2016-05-26 12:00] VITALS: BP 143/87
[2016-05-26] MEDS ORDERED: Adenosine Inj IVP ONE (13:00)
--- NOTE | 2016-05-26 15:54 | Cardiology Report ---
APPROVED REPORT EXAM: Two-dimensional and M-mode echocardiogram with Doppler and color Doppler. INDICATION LV function Normal left ventricular chamber size, systolic function and wall motion. Left ventricular ejection fraction estimated to be 60-65 %. Moderate left ventricular hypertrophy by 2-D. Anterior Echo-free space, may be due to pericardial fat or effusion. Right atrial size at upper limits of normal. All other cardiac chamber sizes are within normal limits. Mild focal aortic valve sclerosis with adequate cusp excursion. Mildly thickened mitral valve leaflets with normal excursion. Mild mitral annulus and aortic root calcification. Pulmonic valve not well visualized. Normal tricuspid valve structure. IVC at normal size with physiologic collapse. A color flow and spectral Doppler study was performed and revealed: Mild mitral regurgitation. Mitral diastolic velocities suggest reduced left ventricular relaxation c/w mild LV diastolic dysfunction (Grade I ). Trace tricuspid regurgitation. Tricuspid systolic velocities suggests peak right ventricular systolic pressure of 14 mmHg.
[2016-05-26 16:00] VITALS: BP 122/66
--- NOTE | 2016-05-26 16:46 | General Progress Note ---
Assessment/Plan Assessment/Plan Assessment - Bloating / gas - loose stools - non specific abd pain - bordeline CEA - borderline LFT changes - CP / ACS Recommendations - Check C diff - still not sent - check hepatitis serologies - pending - check abd u/s - pending - cardilogy w/u - outpatient EGD/Colon - outpt SIBO analysis Subjective Allergies: Coded Allergies: No Known Allergies (Unverified , 04/09/15) Subjective Feels OK some abd discomfort tolerating PO Objective Last 24 Hour Vital Signs Date Time Temp Pulse Resp B/P Pulse Ox O2 Delivery O2 Flow Rate FiO2 05/26/16 15:44 97.7 05/26/16 12:00 97.7 56 18 143/87 87 Room Air 05/26/16 12:00 56 05/26/16 08:55 138/92 05/26/16 08:55 60 138/92 05/26/16 08:00 57 05/26/16 08:00 98.2 58 18 138/92 98 Room Air 05/26/16 07:40 64 16 Room Air 21 05/26/16 04:00 97.8 67 20 142/75 98 Room Air 05/26/16 04:00 64 05/26/16 00:00 61 05/26/16 00:00 97.9 59 21 122/67 97 Room Air 05/25/16 20:52 155/89 05/25/16 20:10 68 16 Room Air 21 05/25/16 20:00 73 05/25/16 20:00 98.7 69 21 150/87 98 Intake and Output 05/25/16 05/26/16 19:00 07:00 Intake Total 830 ml 260 ml Balance 830 ml 260 ml Intake Oral 830 ml 260 ml # Voids 5 1 # Bowel Movements 1 Laboratory Tests 05/26/16 04:35: Hepatitis A IgM Antibody [Pending], Hepatitis B Surface Antigen [Pending], Hepatitis B Core IgM Antibody [Pending], Hepatitis C Antibody [Pending] 05/26/16 10:15: Stool Occult Blood Negative Height (Feet): 5 Height (Inches): 7.00 Weight (Pounds): 180 Objective WDWN AA man NCAT supple CTA RRR Soft NT, obese abd no edema ESTHER MA May 26, 2016 16:46
--- NOTE | 2016-05-26 17:46 | Cardiology Progress Note ---
Assessment/Plan Assessment/Plan 1. Chronic persistent / recurrent chest pain. 2. Reported history of coronary spasm. 3. History of hypertension. 4. Hyperlipidemia. 5. Reported history of coronary artery disease all trop neg despite 3 days of pain ekg is abnormal and unchanged had stress test if neg would dc home pt asking for morphine instead of presnt pain meds understand that i will not be managing his pain meds tele rev personally ekg rev personally echo normal wall motion cxr neg keep on norvasc and imdur for possible spasm hx Subjective Cardiovascular: Reports: chest pain, lightheadedness Respiratory: Reports: shortness of breath Gastrointestinal/Abdominal: Denies: abdominal pain Genitourinary: Denies: burning Objective Last 24 Hour Vital Signs Date Time Temp Pulse Resp B/P Pulse Ox O2 Delivery O2 Flow Rate FiO2 05/26/16 16:00 58 05/26/16 15:44 97.7 05/26/16 12:00 97.7 56 18 143/87 87 Room Air 05/26/16 12:00 56 05/26/16 08:55 138/92 05/26/16 08:55 60 138/92 05/26/16 08:00 57 05/26/16 08:00 98.2 58 18 138/92 98 Room Air 05/26/16 07:40 64 16 Room Air 21 05/26/16 04:00 97.8 67 20 142/75 98 Room Air 05/26/16 04:00 64 05/26/16 00:00 61 05/26/16 00:00 97.9 59 21 122/67 97 Room Air 05/25/16 20:52 155/89 05/25/16 20:10 68 16 Room Air 21 05/25/16 20:00 73 05/25/16 20:00 98.7 69 21 150/87 98 General Appearance: no apparent distress, alert Cardiovascular: normal rate, regular rhythm Respiratory/Chest: lungs clear, normal breath sounds Abdomen: normal bowel sounds, non tender, soft Extremities: no swelling Intake and Output 05/25/16 05/26/16 19:00 07:00 Intake Total 830 ml 260 ml Balance 830 ml 260 ml Intake Oral 830 ml 260 ml # Voids 5 1 # Bowel Movements 1 Laboratory Tests Test 05/26/16 04:35 05/26/16 10:15 Hepatitis A IgM Antibody Pending Hepatitis B Surface Antigen Pending Hepatitis B Core IgM Antibody Pending Hepatitis C Antibody Pending Stool Occult Blood Negative (NEGATIVE) WARREN GALARZA May 26, 2016 17:46
--- NOTE | 2016-05-26 19:40 | Pulmonology Progress Note ---
Assessment/Plan Problems: (1) ACS (acute coronary syndrome) (2) GERD (gastroesophageal reflux disease) (3) Costochondritis (4) CVA (cerebral vascular accident) (5) Hypertension Assessment/Plan echo noted, troponin negative awaiting stress study c/o abdominal pain will get KUB and ask for GI evaluation Subjective Allergies: Coded Allergies: No Known Allergies (Unverified , 04/09/15) Objective Last 24 Hour Vital Signs Date Time Temp Pulse Resp B/P Pulse Ox O2 Delivery O2 Flow Rate FiO2 05/26/16 16:00 58 05/26/16 16:00 97.9 64 17 122/66 98 Room Air 05/26/16 15:44 97.7 05/26/16 12:00 97.7 56 18 143/87 87 Room Air 05/26/16 12:00 56 05/26/16 08:55 138/92 05/26/16 08:55 60 138/92 05/26/16 08:00 57 05/26/16 08:00 98.2 58 18 138/92 98 Room Air 05/26/16 07:40 64 16 Room Air 21 05/26/16 04:00 97.8 67 20 142/75 98 Room Air 05/26/16 04:00 64 05/26/16 00:00 61 05/26/16 00:00 97.9 59 21 122/67 97 Room Air 05/25/16 20:52 155/89 05/25/16 20:10 68 16 Room Air 21 05/25/16 20:00 73 05/25/16 20:00 98.7 69 21 150/87 98 Intake and Output 05/25/16 05/26/16 19:00 07:00 Intake Total 830 ml 260 ml Balance 830 ml 260 ml Intake Oral 830 ml 260 ml # Voids 5 1 # Bowel Movements 1 Objective General Appearance: WD/WN HEENT: normocephalic Respiratory/Chest: chest wall non-tender, lungs clear Cardiovascular: normal peripheral pulses, normal rate Abdomen: normal bowel sounds, soft, non tender Neurologic/Psychiatric: systems lead II-XII grossly normal Laboratory Tests 05/26/16 04:35: Hepatitis A IgM Antibody [Pending], Hepatitis B Surface Antigen [Pending], Hepatitis B Core IgM Antibody [Pending], Hepatitis C Antibody [Pending] 05/26/16 10:15: Stool Occult Blood Negative Current Medications Medications (Trade) Dose Ordered Sig/Heber Route PRN Reason Start Time Stop Time Status Last Admin Dose Admin Acetaminophen (Tylenol) 650 mg Q4H PRN ORAL FEVER 05/22/16 23:15 06/21/16 23:14 Albuterol/ Ipratropium (DuoNeb 0.5-3(2.5)mg/3ml) 3 ml Q4H PRN HHN Shortness of Breath 05/22/16 23:15 05/27/16 23:14 05/23/16 12:09 Amlodipine Besylate (Norvasc) 5 mg DAILY ORAL 05/23/16 09:00 06/22/16 08:59 05/26/16 08:55 Aspirin (ASA) 162 mg DAILY ORAL 05/23/16 09:00 06/22/16 08:59 05/26/16 08:54 Atorvastatin Calcium (Lipitor) 80 mg BEDTIME ORAL 05/23/16 21:00 06/22/16 20:59 05/25/16 20:54 Brimonidine Tartrate (Alphagan) 1 drop TID BOTH EYES 05/24/16 21:00 06/23/16 20:59 05/26/16 17:13 Citalopram Hydrobromide (celeXA) 20 mg DAILY ORAL 05/23/16 09:00 06/22/16 08:59 05/26/16 08:54 Clopidogrel Bisulfate (Plavix) 75 mg DAILY ORAL 05/23/16 09:00 06/22/16 08:59 05/26/16 08:54 Dorzolamide HCl (Trusopt) 1 drop THREE TIMES A DAY BOTH EYES 05/25/16 18:00 06/24/16 17:59 05/26/16 17:13 Enalaprilat (Vasotec) 2.5 mg Q6H PRN IV sbp more than 160 05/22/16 23:15 06/21/16 23:14 Heparin Sodium (Porcine) (Heparin 5000 units/ml) 5,000 units EVERY 12 HOURS SUBQ 05/23/16 09:00 06/22/16 08:59 05/26/16 09:04 Isosorbide Mononitrate (Imdur) 60 mg BEDTIME ORAL 05/23/16 21:00 06/22/16 20:59 05/25/16 20:52 Ketorolac Tromethamine (Toradol 30mg) 30 mg Q6H PRN IV moderate pain ( 4-6) 05/22/16 23:15 05/27/16 23:14 05/26/16 15:14 Latanoprost (Xalatan) 1 drop BEDTIME BOTH EYES 05/25/16 21:00 06/24/16 20:59 05/25/16 21:02 Levetiracetam (Keppra) 500 mg TWICE A DAY ORAL 05/23/16 09:00 06/22/16 08:59 05/26/16 17:13 Lisinopril (Zestril) 10 mg DAILY ORAL 05/23/16 09:00 06/22/16 08:59 05/26/16 08:55 Metoprolol Succinate (Toprol XL) 200 mg DAILY ORAL 05/23/16 09:00 06/22/16 08:59 05/25/16 09:45 Nitroglycerin (Ntg) 0.4 mg Every 5 Minutes PRN SL Prn Chest Pain 05/22/16 23:15 06/21/16 23:14 Ondansetron HCl (Zofran) 4 mg Q6H PRN IVP Nausea & Vomiting 05/22/16 23:15 06/21/16 23:14 05/23/16 21:22 Pantoprazole (Protonix) 40 mg DAILY ORAL 05/23/16 09:00 06/22/16 08:59 05/26/16 08:55 Polyethylene Glycol (Miralax) 17 gm DAILYPRN PRN ORAL Constipation 05/22/16 23:15 06/21/16 23:14 Temazepam (Restoril) 15 mg HSPRN PRN ORAL Insomnia 05/22/16 23:15 05/29/16 23:14 05/24/16 22:26 Terazosin HCl (Hytrin) 2 mg BEDTIME ORAL 05/23/16 21:00 06/22/16 20:59 05/25/16 20:55 Trazodone HCl (Desyrel) 100 mg BEDTIME ORAL 05/23/16 21:00 06/22/16 20:59 05/25/16 20:55 CHARLIE HINTON May 26, 2016 19:40
[2016-05-26 20:00] VITALS: BP 139/82
[2016-05-26] MEDS: Atorvastatin 80mg tab ORAL SCH (20:48)
[2016-05-26] MEDS: Terazosin 1mg cap ORAL SCH (20:49)
[2016-05-26] MEDS: TraZODone 100mg tab ORAL SCH (20:49)
[2016-05-26] MEDS: Imdur 30mg tab ORAL SCH (20:49)
--- NOTE | 2016-05-26 23:08 | Consultation ---
DATE OF CONSULTATION: 05/26/2016 CONSULTING PHYSICIAN: Edna Morales M.D. ATTENDING PHYSICIAN: Axel Corbett M.D. CHIEF COMPLAINT: Right posterior leg pain to rule out pressure ulcer or any injury. HISTORY OF PRESENT ILLNESS: This is a 60-year-old man who was admitted to the hospital on 05/23/2016 with chest pain. The patient complains of weakness of his right leg. He is mobile. However, he states that he does have difficulty ambulating and he does drag his foot sometime because of the weakness. PAST MEDICAL HISTORY: Hypertension and history of CVA. MEDICATIONS: Outpatient medications are amlodipine, aspirin, atorvastatin, Lipitor, citalopram, Plavix, Levetiracetam, lisinopril, Mag-Oxide, metoprolol, mirtazapine, terazosin, and trazodone. He is also on pain medication hydrocodone/acetaminophen p.r.n. ALLERGIES: No known drug allergies. REVIEW OF SYSTEMS: The patient has no other complaints. He recently had some abdominal pain and has been evaluated for that. PHYSICAL EXAMINATION: GENERAL: The patient is alert and oriented, in no acute distress. CARDIOVASCULAR: Regular rate and rhythm. LUNGS: Clear to auscultation bilaterally. EXTREMITIES: Have good range of motion. The patient does complain of right leg weakness. However, he does have full range of motion. I inspected his entire leg and also his back. I did not see any open wound or areas that were nonblanching. I inspected his feet and his heel for any injury since the patient told me he tends to drag his feet. I did not see any injuries or open areas or any areas of nonblanching. I did tell the patient. ASSESSMENT: The patient with history of right leg weakness status post rule out CVA. Admitted for chest pain. There are no pressure ulcers but I did discuss with the patient on prevention then he does have weakness of his right leg I told him to please wear good foot protection especially when ambulating and also ambulate with caution also since he does complain of weakness of the right leg. RECOMMENDATIONS: I recommended him to turn and reposition him every two hours and p.r.n. and offload him. Monitor his feet for any injury or cuts. Edna Morales M.D. DR: MARYCHUY JOB#: [id number] CC: PADMA
[2016-05-27] VITALS: BP 124/74
[2016-05-27 04:00] VITALS: BP 131/75
[2016-05-27] MEDS: Ketorolac 30mg Inj IV PRN ×2 (06:48→14:58)
[2016-05-27] MEDS: Brimonidine 0.2% Opth Sol BOTH EYES SCH ×2 (08:09→12:18)
[2016-05-27] MEDS: Dorzolamide 2% Btl BOTH EYES SCH ×2 (08:09→12:18)
[2016-05-27] MEDS: Citalopram 20mg Tab ORAL SCH (08:10)
[2016-05-27] MEDS: Aspirin Baby 81mg ORAL SCH (08:10)
[2016-05-27] MEDS: Heparin 5000 units/ml inj SUBQ SCH (08:12)
[2016-05-27] MEDS: Lisinopril 10mg tab ORAL SCH (08:14)
[2016-05-27] MEDS: Metoprolol XL 100mg tab ORAL SCH (08:14)
[2016-05-27 08:34] VITALS: BP 148/93
--- NOTE | 2016-05-27 09:42 | Cardiology Progress Note ---
Assessment/Plan Assessment/Plan 1. Chronic persistent / recurrent chest pain. 2. Reported history of coronary spasm. 3. History of hypertension. 4. Hyperlipidemia. 5. Reported history of coronary artery disease all trop neg despite several days of pain ekg is abnormal and unchanged had stress test yest result are still pending as of 05/27/2016 if neg would dc home echo normal wall motion cxr neg keep on norvasc and imdur for possible spasm hx last bp is elevated but prior level were ok Subjective Cardiovascular: Reports: chest pain, lightheadedness, palpitations Respiratory: Reports: shortness of breath Gastrointestinal/Abdominal: Reports: abdominal pain Genitourinary: Denies: burning Objective Last 24 Hour Vital Signs Date Time Temp Pulse Resp B/P Pulse Ox O2 Delivery O2 Flow Rate FiO2 05/27/16 08:34 97.8 76 18 148/93 99 Room Air 05/27/16 08:14 76 148/93 05/27/16 08:14 148/93 05/27/16 08:14 76 148/93 05/27/16 07:44 74 16 Room Air 21 05/27/16 04:00 70 05/27/16 04:00 98.0 71 21 131/75 94 Room Air 05/27/16 00:00 97.3 86 20 124/74 94 Room Air 05/27/16 00:00 74 05/26/16 20:49 138/85 05/26/16 20:25 67 16 Room Air 21 05/26/16 20:00 99.1 66 20 139/82 96 Room Air 05/26/16 20:00 67 05/26/16 16:00 58 05/26/16 16:00 97.9 64 17 122/66 98 Room Air 05/26/16 15:44 97.7 05/26/16 12:00 97.7 56 18 143/87 87 Room Air 05/26/16 12:00 56 General Appearance: no apparent distress, alert Neck: supple Cardiovascular: normal rate, regular rhythm Respiratory/Chest: expiratory wheezing Abdomen: normal bowel sounds, non tender, soft Extremities: no swelling Intake and Output 05/26/16 05/27/16 19:00 07:00 Intake Total 520 ml Balance 520 ml Intake Oral 520 ml # Voids 3 1 # Bowel Movements 1 Laboratory Tests Test 05/26/16 10:15 Stool Occult Blood Negative (NEGATIVE) WARREN GALARZA May 27, 2016 09:42
--- NOTE | 2016-05-27 09:49 | Diagnostic Imaging Report ---
Indications: Chest pain, hypertension, congestive heart failure, prior WA in 2013 Technique: Single day single isotope protocol utilized. Initially, resting images obtained using IV administration 11.3 millicuries 99M technetium Myoview. Subsequently, patient underwent adenosine stress testing. See cardiology report for details. During adenosine infusion, IV administration 31.4 mCi 99 M technetium Myoview. SPECT and planar images obtained. SPECT images gated to 8 phases of the cardiac cycle were also obtained, and reformatted into cine images for evaluation of ejection fraction. Comparison: None Findings: Per cardiology report, patient experienced shortness of breath and pleuritic chest pain. Per cardiology report, resting EKG demonstrates normal sinus rhythm, cannot rule out inferior WA. No significant ST-T wave changes noted during infusion. Imaging demonstrates a large perfusion defect in the inferior wall and apex, extending slightly into the inferolateral wall. This appears equivocally minimally smaller on the resting images than on the poststress images. Calculated post stress ejection fraction 57 % there is very mild inferior wall hypokinesis Impression: Nonischemic clinical response to pharmacologic stress, per cardiology report Nonischemic electrocardiographic response to pharmacologic stress, per cardiology report Apical, inferior wall, and inferolateral wall mostly fixed perfusion defect, consistent with infarct. Defect is equivocally minimally smaller on the resting images, which may indicate slight degree of tommy-infarct ischemia Calculated post stress ejection fraction 57%, higher than anticipated given the size of the infarct
[2016-05-27 12:06] VITALS: BP 135/87
--- NOTE | 2016-05-27 13:15 | Pulmonology Progress Note ---
Assessment/Plan Problems: (1) ACS (acute coronary syndrome) (2) GERD (gastroesophageal reflux disease) (3) Costochondritis (4) CVA (cerebral vascular accident) (5) Hypertension Assessment/Plan echo noted, troponin negative stress study was negative symptoamtic treatment Subjective ROS Limited/Unobtainable: No Constitutional: Reports: no symptoms HEENT: Repors: no symptoms Allergies: Coded Allergies: No Known Allergies (Unverified , 04/09/15) Objective Last 24 Hour Vital Signs Date Time Temp Pulse Resp B/P Pulse Ox O2 Delivery O2 Flow Rate FiO2 05/27/16 12:06 97.9 68 18 135/87 98 Room Air 05/27/16 08:34 97.8 76 18 148/93 99 Room Air 05/27/16 08:14 76 148/93 05/27/16 08:14 148/93 05/27/16 08:14 76 148/93 05/27/16 08:00 73 05/27/16 07:44 74 16 Room Air 21 05/27/16 04:00 70 05/27/16 04:00 98.0 71 21 131/75 94 Room Air 05/27/16 00:00 97.3 86 20 124/74 94 Room Air 05/27/16 00:00 74 05/26/16 20:49 138/85 05/26/16 20:25 67 16 Room Air 21 05/26/16 20:00 99.1 66 20 139/82 96 Room Air 05/26/16 20:00 67 05/26/16 16:00 58 05/26/16 16:00 97.9 64 17 122/66 98 Room Air 05/26/16 15:44 97.7 Intake and Output 05/26/16 05/27/16 19:00 07:00 Intake Total 520 ml Balance 520 ml Intake Oral 520 ml # Voids 3 1 # Bowel Movements 1 Objective General Appearance: WD/WN HEENT: normocephalic Respiratory/Chest: chest wall non-tender, lungs clear Cardiovascular: normal peripheral pulses, normal rate Abdomen: normal bowel sounds, soft, non tender Neurologic/Psychiatric: color weigher II-XII grossly normal Laboratory Tests 05/27/16 12:40: Folate [Pending] Current Medications Medications (Trade) Dose Ordered Sig/Heber Route PRN Reason Start Time Stop Time Status Last Admin Dose Admin Acetaminophen (Tylenol) 650 mg Q4H PRN ORAL FEVER 05/22/16 23:15 06/21/16 23:14 Albuterol/ Ipratropium (DuoNeb 0.5-3(2.5)mg/3ml) 3 ml Q4H PRN HHN Shortness of Breath 05/22/16 23:15 05/27/16 23:14 05/23/16 12:09 Amlodipine Besylate (Norvasc) 5 mg DAILY ORAL 05/23/16 09:00 06/22/16 08:59 05/27/16 08:14 Aspirin (ASA) 162 mg DAILY ORAL 05/23/16 09:00 06/22/16 08:59 05/27/16 08:10 Atorvastatin Calcium (Lipitor) 80 mg BEDTIME ORAL 05/23/16 21:00 06/22/16 20:59 05/26/16 20:48 Brimonidine Tartrate (Alphagan) 1 drop TID BOTH EYES 05/24/16 21:00 06/23/16 20:59 05/27/16 12:18 Citalopram Hydrobromide (celeXA) 20 mg DAILY ORAL 05/23/16 09:00 06/22/16 08:59 05/27/16 08:10 Clopidogrel Bisulfate (Plavix) 75 mg DAILY ORAL 05/23/16 09:00 06/22/16 08:59 05/27/16 08:09 Dorzolamide HCl (Trusopt) 1 drop THREE TIMES A DAY BOTH EYES 05/25/16 18:00 06/24/16 17:59 05/27/16 12:18 Enalaprilat (Vasotec) 2.5 mg Q6H PRN IV sbp more than 160 05/22/16 23:15 06/21/16 23:14 Heparin Sodium (Porcine) (Heparin 5000 units/ml) 5,000 units EVERY 12 HOURS SUBQ 05/23/16 09:00 06/22/16 08:59 05/27/16 08:12 Isosorbide Mononitrate (Imdur) 60 mg BEDTIME ORAL 05/23/16 21:00 06/22/16 20:59 05/26/16 20:49 Ketorolac Tromethamine (Toradol 30mg) 30 mg Q6H PRN IV moderate pain ( 4-6) 05/22/16 23:15 05/27/16 23:14 05/27/16 06:48 Latanoprost (Xalatan) 1 drop BEDTIME BOTH EYES 05/25/16 21:00 06/24/16 20:59 05/26/16 20:50 Levetiracetam (Keppra) 500 mg TWICE A DAY ORAL 05/23/16 09:00 06/22/16 08:59 05/27/16 08:10 Lisinopril (Zestril) 10 mg DAILY ORAL 05/23/16 09:00 06/22/16 08:59 05/27/16 08:14 Metoprolol Succinate (Toprol XL) 200 mg DAILY ORAL 05/23/16 09:00 06/22/16 08:59 05/27/16 08:14 Nitroglycerin (Ntg) 0.4 mg Every 5 Minutes PRN SL Prn Chest Pain 05/22/16 23:15 06/21/16 23:14 Ondansetron HCl (Zofran) 4 mg Q6H PRN IVP Nausea & Vomiting 05/22/16 23:15 06/21/16 23:14 05/23/16 21:22 Pantoprazole (Protonix) 40 mg DAILY ORAL 05/23/16 09:00 06/22/16 08:59 05/27/16 08:10 Polyethylene Glycol (Miralax) 17 gm DAILYPRN PRN ORAL Constipation 05/22/16 23:15 06/21/16 23:14 Temazepam (Restoril) 15 mg HSPRN PRN ORAL Insomnia 05/22/16 23:15 05/29/16 23:14 05/26/16 22:25 Terazosin HCl (Hytrin) 2 mg BEDTIME ORAL 05/23/16 21:00 06/22/16 20:59 05/26/16 20:49 Trazodone HCl (Desyrel) 100 mg BEDTIME ORAL 05/23/16 21:00 06/22/16 20:59 05/26/16 20:49 CHARLIE HINTON May 27, 2016 13:15
--- NOTE | 2016-05-27 16:26 | Diagnostic Imaging Report ---
APPROVED REPORT CPT Code: 29052 Present Symptoms Comments: Chest pain BILATERAL: Imaging reveals a patent deep venous system bilaterally. There is no evidence of thrombus within the femoral, popliteal or tibial segments. The greater saphenous veins are also within normal limits. Doppler indicates normal spontaneous flow within these segments.
--- NOTE | 2016-05-27 21:44 | General Progress Note ---
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 (+) - CP / ACS Recommendations - Check C diff - still not sent - check hepatitis serologies - pending - check abd u/s - pending - cardilogy w/u - outpatient EGD/Colon - advised needs to be screened for malignancy - outpt SIBO analysis Subjective Allergies: Coded Allergies: No Known Allergies (Unverified , 04/09/15) Subjective seen in am Feels OK some abd discomfort tolerating PO HCV (+) noted Objective Last 24 Hour Vital Signs Date Time Temp Pulse Resp B/P Pulse Ox O2 Delivery O2 Flow Rate FiO2 05/27/16 12:06 97.9 68 18 135/87 98 Room Air 05/27/16 12:00 72 05/27/16 08:34 97.8 76 18 148/93 99 Room Air 05/27/16 08:14 76 148/93 05/27/16 08:14 148/93 05/27/16 08:14 76 148/93 05/27/16 08:00 73 05/27/16 07:44 74 16 Room Air 21 05/27/16 04:00 70 05/27/16 04:00 98.0 71 21 131/75 94 Room Air 05/27/16 00:00 97.3 86 20 124/74 94 Room Air 05/27/16 00:00 74 Intake and Output 05/26/16 05/27/16 19:00 07:00 Intake Total 520 ml Balance 520 ml Intake Oral 520 ml # Voids 3 1 # Bowel Movements 1 Laboratory Tests 05/27/16 12:40: Folate [Pending] Height (Feet): 5 Height (Inches): 7.00 Weight (Pounds): 180 Objective WDWN AA man NCAT supple CTA RRR Soft NT, obese abd no edema ESTHER MA May 27, 2016 21:44
--- NOTE | 2016-05-28 08:42 | Cardiology Report ---
APPROVED REPORT EKG Measurement Heart [id number] Normal sinus rhythm Inferior infarct, age undetermined T wave abnormality, consider lateral ischemia Abnormal ECG
--- NOTE | 2016-05-28 16:18 | Cardiology Report ---
APPROVED REPORT EKG Measurement Heart [id number] Normal sinus rhythm Inferior infarct, age undetermined T wave abnormality, consider lateral ischemia Abnormal ECG
--- NOTE | 2016-05-28 19:23 | Discharge Summary ---
Discharge Summary Hospital Course Date of Admission May 22, 2016 at 21:30 Date of Discharge May 27, 2016 at 15:38 Admitting Diagnosis ACS HPI Kj Lin is a 60 year old male who was admitted on May 22, 2016 at 21:30 for Acute Coronary Syndrome Hospital Course [id number] Discharge Discharge Disposition Patient was discharged to Home (01) Discharge Diagnoses: Cristina Morales NP May 28, 2016 19:23
--- NOTE | 2016-05-29 01:08 | Discharge Summary 2 SIG ---
DATE OF ADMISSION: 05/22/2016 DATE OF DISCHARGE: 05/27/2016 CONSULTANTS: 1. Laz Ch M.D. 2. Edna Calvillo M.D. 3. Clemente Valdivia M.D. BRIEF HOSPITAL COURSE: The patient is a 60-year-old male with history of hypertension and CVA, who presented to ED complaining of chest pain, which was pressure-like and nonradiating. He was given aspirin and nitroglycerin with minimal improvement in pain. He has a history of hypertension and gastritis and notes some epigastric pain. On evaluation at ED, EKG showed T-wave inversion in the lateral leads. Troponin was negative. Chest x-ray was unremarkable. He was admitted for cardiac evaluation. Cardiology was consulted. Cardiac enzymes were monitored. He underwent an echocardiogram that showed ejection fraction of 60% to 65% and normal wall motion. Venous duplex was negative for DVT bilaterally. He underwent myocardial perfusion stress test and results were nonischemic. Dr. Valdivia was consulted for evaluation of abdominal pain. He was recommended an endoscopy and colonoscopy as an outpatient. The patient had a loose stools, however, no C. difficile was sent. Hepatitis serology was negative. Abdominal x-ray showed nonobstructive and nonspecific bowel gas pattern. He was discharged home. Advised to follow up with PMD. FINAL DIAGNOSES: 1. Recurrent and persistent chest pain secondary to coronary spasms. 2. Costochondritis. 3. Gastroesophageal reflux disease. 4. Hypertension. 5. Hyperlipidemia. 6. Old cerebrovascular accident. Axel Corbett M.D. I have been assigned to dictate discharge summary on this account and I was not involved in the patient's management. Cristina Morales N.P. DR: ARIELLA JOB#: [id number] CC: PADMA
--- NOTE | 2016-05-30 14:24 | Diagnostic Imaging Report ---
Indications: Elevated liver function tests Technique: Transabdominal real-time grayscale and duplex Doppler imaging of the upper abdomen and retroperitoneum was performed. Findings: Comparison: CT abdomen pelvis 09/26/2015. Liver normal size and surface contour, parenchymal echogenicity. No focal lesions. Gallbladder not identified. Bile ducts nondilated within liver. Common bile duct 7 mm. Pancreas visualized portions unremarkable. Spleen unremarkable. Right kidney unremarkable. Left kidney unremarkable. Abdominal aorta, intrahepatic portion of inferior vena cava patent, normal caliber. Duplex Doppler imaging demonstrates antegrade flow in splenic, portal, hepatic veins. No ascites. IMPRESSION: Previous cholecystectomy Otherwise negative abdominal ultrasound.
== END 2016-05-27 15:38 | disposition home or self-care (01) | DRG 198 ==
LOC: ENRESERVTM → ENRESERVDT → EDBD 19:24 → EMR 19:58 → 2E 21:30 → EDBEDREQ 22:06
DX: I25.111 Atherosclerotic heart disease of native coronary artery with angina pectoris with documented spasm (principal); I10 Essential (primary) hypertension; M94.0 Chondrocostal junction syndrome [Tietze]; K21.9 Gastro-esophageal reflux disease without esophagitis; Z86.73 Personal history of transient ischemic attack (TIA), and cerebral infarction without residual deficits; E78.5 Hyperlipidemia, unspecified; K29.70 Gastritis, unspecified, without bleeding; Z95.5 Presence of coronary angioplasty implant and graft; F17.200 Nicotine dependence, unspecified, uncomplicated; Z79.02 Long term (current) use of antithrombotics/antiplatelets; R14.0 Abdominal distension (gaseous); R10.13 Epigastric pain
CPT/HCPCS: 36415; 71010; 74000; 76700; 78452; 80053; 80061; 80299; 80300; 82270; 82378; 82550; 82553; 82607; 82746; 83540; 83550; 83615; 83735; 83880; 84100; 84443; 84484; 85007; 85025; 85044; 85060; 85610; 85651; 85730; 86140; 86705; 86709; 86803; 87340; 93005; 93017; 93306; 93970; 94640; 94664; J2405; J7620; J8499